=== PATIENT | female | born 1950 | race Caucasian/White ===

== ENCOUNTER → 2017-09-15 10:00 | Outpatient (CLI) | payer MEDICARE, OTHER, SELFPAY ==
[2017-09-20 11:22] LABS: HPV Reflexed? NOT INDICATED
== END ==
PROVIDERS: Family Provider Family Medicine; PCP Family Medicine; Visit Provider Obstetrics & Gynecology
DX: Z12.4 Encounter for screening for malignant neoplasm of cervix (principal)
CPT/HCPCS: 88175; G0145

== ENCOUNTER → 2017-10-22 11:40 | Outpatient (CLI) | payer MEDICARE, OTHER, SELFPAY | PROVIDERS: Family Provider Family Medicine; PCP Family Medicine; Visit Provider Family Medicine | DX: J02.9 Acute pharyngitis, unspecified (principal) | CPT/HCPCS: 87070 ==

== ENCOUNTER → 2018-01-24 09:29 | Outpatient (CLI) | payer MEDICARE, OTHER, SELFPAY ==
[2018-01-24 12:17] LABS: Absolute Lymphocyte Count 1.91 X10^3/ul (0.83-4.51); Absolute Neutrophil Count 2.7 X10^3/uL (2.0-7.7); Basophil# 0.05 X10^3/uL; Eosinophil# 0.07 X10^3/uL; Eosinophils% 1.3 % (0-5); Hematocrit 37.8 % (37-47); Hemoglobin 12.1 g/dl (12.0-15.0); Lymphocyte # 1.91 X10^3/ul (4.0); Lymphocyte % 36.6 % (19-41); Mean Corpuscular Hgb 29.7 pg (27.0-32.0); Mean Corpuscular Volume 92.6 fL (81-99); Mean Platelet Vol. 10.5 fl (6.2-12.0); Monocyte# 0.44 X10^3/uL; Monocyte% 8.4 % (0-10); Neutrophil # 2.74 X10^3/uL (2.7-7.7); Neutrophil % 52.5 % (47-70); Platelet Count 288 K/mm3 (150-450); RBC Distribution Width CV 13.1 % (11.6-14.6); RBC Distribution Width SD 44.1 fl (35.1-43.9); Red Blood Count 4.08 M/mm3 (4.2-5.4); White Blood Count 5.2 K/mm3 (4.4-11.0)
[2018-01-24 12:22] LABS: POSITIVE COUNT NO; POSITIVE DIFFERENTIAL NO; POSITIVE MORPHOLOGY NO
[2018-01-24 12:35] LABS: Vitamin D,25 Hydroxy 23.1 ng/mL (29.95-100.01)
[2018-01-24 12:44] LABS: ALB/GLOB Ratio 0.9 RATIO (0.9-2.4); AST(SGOT) 22 U/L (15-37); Alanine Aminotransfer ALT/SGPT 31 U/L (13-56); Albumin, Serum 3.8 g/dL (3.2-5.0); Alkaline Phosphatase 73 U/L (45-117); Anion Gap 11 (5-15); BUN 10 mg/dL (7-18); BUN/Creat Ratio 12.6 RATIO (10-20); Calcium,Total 8.9 mg/dL (8.5-10.1); Chloride 105 mmol/L (98-107); Cholesterol 177 mg/dL (200); EST Glomerular Filtration Rate 77 mL/min (>60); Est Glom Filt Rate - Afr Amer 93 mL/min (>60); Globulin 4.1 g/dL (2.2-4.2); Glucose 86 mg/dL (74-106); High Density Lipoprotein 66 mg/dL; Potassium 3.9 mmol/L (3.5-5.1); Protein, Total 7.9 g/dL (6.4-8.2); Sodium Level 142 mmol/L (136-145); Thyroid Stim Hormone (TSH) 0.74 uIU/mL (0.358-3.74); Triglycerides 73 mg/dL; Very Low Density Lipoprotein 15 mg/dL (5-40)
== END ==
PROVIDERS: Family Provider Family Medicine; PCP Family Medicine; Visit Provider Family Medicine
DX: K58.0 Irritable bowel syndrome with diarrhea (principal); M81.0 Age-related osteoporosis without current pathological fracture; E78.00 Pure hypercholesterolemia, unspecified
CPT/HCPCS: 36415; 80053; 80061; 82306; 84443; 85025

== ENCOUNTER 2018-02-20 06:40 | Emergency (ER) | payer MEDICARE, OTHER, SELFPAY ==
[2018-02-20 06:41] VITALS: BP 146/68; PULSE 68; RESP 16; TEMP 36.7; O2SAT 100; BMI 22.1
--- NOTE | 2018-02-20 06:50 | CT_ITS ---
STUDY: CT ABDOMEN AND PELVIS WITH CONTRAST REASON FOR EXAM: Female, 67 years old. LLQ PAIN-DX WITH DIVERTICULITIS YESTERDAY WITH NO IMAGING DONE, INCREASED ABD CRAMPING TODAY, SURG-APPY, LT OOPHRECTOMY. RADIATION DOSAGE (If Supplied By Facility): CTDIvol = ( 10.35 ) mGy, DLP = ( 474.28 ) mGycm TECHNIQUE: Transaxial images were obtained from the dome of the diaphragm to the symphysis pubis without oral contrast. 100 ml of Isovue 300 contrast was administered. Sagittal and coronal images were reconstructed. Individualized dose optimization techniques were used for this CT. COMPARISON: None. FINDINGS: The visualized lung bases are unremarkable. The visualized portions of the heart are within normal limits. Normal liver. Normal gallbladder and extrahepatic biliary system. Normal spleen. Normal pancreas. Normal bilateral adrenal glands. Normal right kidney. Normal left kidney. Normal visualized stomach. Normal small intestine. Normal colon. There is non-visualization of the appendix. There is diffuse atherosclerotic calcification of the abdominal aorta, without a demonstrated aneurysm. Normal inferior vena cava. Normal retroperitoneum. Normal urinary bladder. Normal abdominal wall. There are diffuse degenerative changes of the visualized lumbar spine. CT/Abdomen/Pelvis W IV Cont ONLY IMPRESSION: Diverticulosis. Electronically Signed: Charley Felipe MD at 8:26 EDT Tel , Service support ,
--- NOTE | 2018-02-20 06:51 | ED.VISSUMM ---
- ER Visit Summary Date of Service: 02/20/18 Chief Complaint: Left lower quadrant abdominal pain History of Present Illness: The patient is a 67 F history of irritable bowel syndrome. Prior appendectomy and her left ovary removed. Patient states for approximately 1 week she has had left lower quadrant abdominal pain. Initially was treated with Bentyl and then started on the antibiotic Omnicef. She felt this may be secondary to irritable bowel. But has not been getting any better. She saw her primary care physician Dr. Aaron Segura yesterday also started her on Flagyl. She denies nausea or vomiting. She has had no true fever but states she has had low-grade temperatures in the 99 range. She denies any dysuria, hematuria or frequency. She denies any vaginal bleeding. She denies any abdominal trauma. No back pain. Physical Examination: Well-appearing older female. Vital signs are stable and afebrile. H EENT exam unremarkable. Moist wheeze membranes. Neck nontender. No lymphadenopathy. Lungs clear to auscultation bilaterally. Heart regular rate and rhythm no murmur. Abdomen is soft. Mild left lower quadrant tenderness. No rebound. No guarding or rigidity. No signs of bowel obstruction. No distention. No hernias or masses. No pulsatile mass. Both the right upper and right lower quadrants are completely nontender. Normal bowel sounds. Moving all 4 extremities. Neurovascularly intact. Calves are nontender without edema. Back is nontender. Neurologically she is awake and alert without focal motor deficits. Test Results: [] Emergency Department Course and Treatment: Patient with left lower quadrant abdominal pain. Does not have significant discomfort on exam. Screening labs and CT of be obtained. Along with urinalysis. Patient will be turned over to the a.m. physician. Treatment Plan: [] Disposition: [] Impression: Acute left lower quadrant abdominal pain Prior history of appendectomy. This note was generated with [employer] dictation software. It may contain incorrect words, spelling, and punctuation that were not noted in review of the chart prior to signing <Erlin Perez - Last Filed: 02/20/18 06:51> - ER Visit Summary Date of Service: 02/20/18 Test Results: CBC, comprehensive metabolic profile, lipase, and urinalysis were obtained were all within normal limits. CT scan of the abdomen and pelvis with IV contrast shows diverticulosis but no acute abdominal process. Emergency Department Course and Treatment: Patient was instructed to finish her Flagyl and Omnicef as prescribed. Patient was instructed to take Bentyl as needed for pain. Patient was instructed to follow-up with her primary care physician in 5-7 days. Patient was instructed to eat a bland diet. Patient understood and was agreeable with the plan. All questions were answered. Disposition: Discharged home Impression: Left lower quadrant abdominal pain This note was generated with [employer] dictation software. It may contain incorrect words, spelling, and punctuation that were not noted in review of the chart prior to signing <Aaron River - Last Filed: 02/20/18 08:44> ED Disposition <Erlin Perez - Last Filed: 02/20/18 06:51> <Aaron River - Last Filed: 02/20/18 08:44> - Plan for ED Patient: Disposition: Home or Assisted Living Chief Complaint: Abd Pain Diagnosis: Left lower quadrant abdominal pain of unknown etiology Instructions: ED Abdominal Pain Unkn Cause Referrals: Aaron Segura MD [Primary Care Provider] -
[2018-02-20 07:01] LABS: Bacteria 0 SEEN /hpf (None Seen); Mucous, Urine 0 SEEN /hpf (<or=2+); Red Blood Cells-Urine 0 SEEN /hpf (0-5); White Blood Cells 0 SEEN /hpf (0-5)
[2018-02-20 07:05] LABS: Absolute Lymphocyte Count 2.11 X10^3/ul (0.83-4.51); Absolute Neutrophil Count 2.2 X10^3/uL (2.0-7.7); Basophil# 0.05 X10^3/uL; Eosinophil# 0.12 X10^3/uL; Eosinophils% 2.4 % (0-5); Hematocrit 39.1 % (37-47); Hemoglobin 12.6 g/dl (12.0-15.0); Lymphocyte # 2.11 X10^3/ul (4.0); Lymphocyte % 41.9 % (19-41); Mean Corp Hgb Conc 32.2 g/gl (32-36); Mean Corpuscular Hgb 29.9 pg (27.0-32.0); Mean Corpuscular Volume 92.7 fL (81-99); Mean Platelet Vol. 9.8 fl (6.2-12.0); Monocyte# 0.53 X10^3/uL; Monocyte% 10.5 % (0-10); Neutrophil # 2.22 X10^3/uL (2.7-7.7); Neutrophil % 44.2 % (47-70); Platelet Count 295 K/mm3 (150-450); RBC Distribution Width CV 12.8 % (11.6-14.6); RBC Distribution Width SD 42.1 fl (35.1-43.9); Red Blood Count 4.22 M/mm3 (4.2-5.4)
[2018-02-20 07:17] LABS: POSITIVE COUNT NO; POSITIVE DIFFERENTIAL NO; POSITIVE MORPHOLOGY NO
[2018-02-20 07:18] LABS: Color, Urine Straw (Yellow); Glucose, Dipstick Normal (Normal); Ketone-Dipstick Negative (Negative); Leukocyte Esterase-Dipstick Negative /ul (Negative); Nitrite-Dipstick Negative (Negative); Occult Blood-Urine Negative /ul (Negative); Protein-Dipstick Negative (Negative); Urine Bilirubin Dipstick Negative (Negative); Urine Clarity Clear (Clear); Urine Urobilinogen Normal (Normal); Urine pH 6.5 (5.0 - 8.0)
[2018-02-20 07:20] LABS: Squamous Epithelial Cells - UA 0-5 SEEN /hpf (5-10)
[2018-02-20 07:24] LABS: AST(SGOT) 19 U/L (15-37); Alanine Aminotransfer ALT/SGPT 28 U/L (13-56); Albumin, Serum 3.8 g/dL (3.2-5.0); Alkaline Phosphatase 76 U/L (45-117); Anion Gap 11 (5-15); BUN 8 mg/dL (7-18); Bilirubin, Direct 0.07 mg/dL (0.00-0.30); Calcium,Total 8.9 mg/dL (8.5-10.1); Chloride 107 mmol/L (98-107); Creatinine, Serum 0.89 mg/dL (0.55-1.02); EST Glomerular Filtration Rate 67 mL/min (>60); Est Glom Filt Rate - Afr Amer 82 mL/min (>60); Estimated Creatinine Clearance 53.69 ml/min; Globulin 4.3 g/dL (2.2-4.2); Glucose 96 mg/dL (74-106); Lipase 237 U/L (73-393); Potassium 3.8 mmol/L (3.5-5.1); Protein, Total 8.1 g/dL (6.4-8.2); Sodium Level 144 mmol/L (136-145)
[2018-02-20 08:51] VITALS: BP 108/84; PULSE 72; RESP 15; O2SAT 98
== END 2018-02-20 08:51 | disposition home or self-care (01) ==
PROVIDERS: Emergency Provider Emergency Medicine; Family Provider Family Medicine; PCP Family Medicine
DX: R10.32 Left lower quadrant pain (principal); K58.0 Irritable bowel syndrome with diarrhea
CPT/HCPCS: 74177; 80048; 80076; 81001; 83690; 85025; 99283; Q9967; A4216

== ENCOUNTER → 2018-03-18 13:20 | Outpatient (CLI) | payer MEDICARE, OTHER, SELFPAY | PROVIDERS: Family Provider Family Medicine; PCP Family Medicine; Visit Provider Family Medicine | DX: K57.92 Diverticulitis of intestine, part unspecified, without perforation or abscess without bleeding (principal) | CPT/HCPCS: 74176 ==

== ENCOUNTER → 2018-07-09 09:28 | Outpatient (CLI) | payer MEDICARE, OTHER, SELFPAY ==
--- NOTE | 2018-07-09 09:34 | BI_ITS ---
MAMMOGRAPHY - BILATERAL SCREENING REASON FOR EXAM: Female, 68 years old. Routine annual screening examination. PERTINENT HISTORY: Non-contributory. TECHNIQUE: Digital bilateral breast sophia (3D mammographic acquisition) in the CC and MLO projections. 2-D mediolateral oblique (MLO) and craniocaudad (CC) views of both breasts were obtained. CAD: Full Field Digital Mammography with Computer Added Detection was performed. COMPARISON: Comparison is made with prior study dated July 08, 2017 and July 07, 2016. FINDINGS: Breast Composition: The breasts are heterogeneously dense, which may obscure small masses. There are no dominant masses or suspicious calcifications. No other significant abnormalities are identified. There has been no significant change since the prior study. BI/SCREENING MAMM (CAD), BILAT IMPRESSION: Stable bilateral screening mammogram. Yearly follow-up mammogram recommended. (A) ASSESSMENT CATEGORY: BIRADS Category 1: Negative. A letter regarding these results will be sent to the patient by the facility within 30 days. Approximately 10% of breast cancers are not detected by mammography. A normal mammogram should not delay biopsy of a clinically suspicious abnormality. [id number] Electronically Signed: Mann Moses MD at 10:07 EST Tel [phone], Service support ,
== END ==
PROVIDERS: Family Provider Family Medicine; PCP Family Medicine; Referring Provider Obstetrics & Gynecology; Visit Provider Obstetrics & Gynecology
DX: Z12.31 Encounter for screening mammogram for malignant neoplasm of breast (principal)
CPT/HCPCS: 77063; 77067

== ENCOUNTER → 2018-08-03 07:52 | Outpatient (CLI) | payer MEDICARE, OTHER, SELFPAY ==
--- OUTSIDE RECORDS SUMMARY | 2018-10-05 02:04 | XMS RPT_ITS ---
:1950 Author Organization [facility] Care Team Providers Name Role Phone EARLE LEONARDO Attending Unavailable SEGURA, DEREJE SUSAN Referring Unavailable EARLE LEONARDO Attending Unavailable SEGURA, DEREJE SUSAN Referring Unavailable Segura, Dereje Attending Unavailable Segura, Dereje Primary Care Unavailable Segura, Dereje Attending Unavailable Segura, Dereje Primary Care Unavailable Segura, Dereje Referring Unavailable Segura, Dereje Attending Unavailable Segura, Dereje Referring Unavailable Segura, Dereje Primary Care Unavailable Patric Ledezma Attending Unavailable Segura, Dereje Primary Care Unavailable Patric Ledezma Referring Unavailable Segura, Dereje Primary Care Unavailable Erlin Perez Attending Unavailable Segura, Dereje Attending Unavailable Segura, Dereje Primary Care Unavailable Patric Ledezma Attending Unavailable Patric Ledezma Referring Unavailable Segura, Dereje Primary Care Unavailable PROBLEMS PROBLEMS DATE TYPE CONDITION / CODE ATTENDING STATUS SOURCE 08/03/2018 Unknown R19.7 - Diarrhea, Segura, Dereje Active [facility] unspecified / Community R19.7(ICD-10) Hospital Repository 07/15/2018 Unknown Z12.31 - Patric Ledezma Active [facility] Encounter for Community screening Hospital mammogram for Repository malignant neoplasm of breast / Z12.31(ICD-10) 10/26/2017 Unknown J02.9 - Acute Dereje Segura Active [facility] pharyngitis, Community unspecified / Hospital J02.9(ICD-10) Repository 09/15/2017 Unknown Z12.4 - Encounter Patric Ledezma Active [facility] for screening for Community malignant Hospital neoplasm of Repository cervix / Z12.4(ICD-10) PROCEDURES PROCEDURES No Procedure Records FoundRESULTS RESULTS Observed: 08/03/2018 Status: F Source: [place] CDIFF (MOLECULAR) 7:42 AM [facility] REPOSITORY Cdiff-Molecular Normal Reference Range = Negative C. Diff DNA Negative- No toxigenic C. Diff DNA Detected NAAT METHOD Testing was performed using nucleic acid amplification Performed By: #### [id number] #### [facility] [address] [place], [address] SCREENING MAMM (CAD), Observed: 07/09/2018 Status: F Source: [place] BILAT 9:35 AM [facility] REPOSITORY [facility] Imaging Services [address] [place] [address] SCREENING MAMM (CAD), BILAT MR#: [id number] Acct: [id number] Name: TRACI FRAZIER Rep #: [id number] : 1950 F 68 From: Mann Moses MD PCP: Dereje Segura MD Status: REG CLI Study: SCREENING MAMM (CAD), BILAT Date of Exam: 07/09/18 Exam# [id number] Ordering Dr: Patric Ledezma MD MAMMOGRAPHY - BILATERAL SCREENING REASON FOR EXAM: Female, 68 years old. Routine annual screening examination. PERTINENT HISTORY: Non-contributory. TECHNIQUE: Digital bilateral breast sophia (3D mammographic acquisition) in the CC and MLO projections. 2-D mediolateral oblique (MLO) and craniocaudad (CC) views of both breasts were obtained. CAD: Full Field Digital Mammography with Computer Added Detection was performed. COMPARISON: Comparison is made with prior study dated July 08, 2017 and July 07, 2016. FINDINGS: Breast Composition: The breasts are heterogeneously dense, which may obscure small masses. There are no dominant masses or suspicious calcifications. No other significant abnormalities are identified. There has been no significant change since the prior study. BI/SCREENING MAMM (CAD), BILAT IMPRESSION: Stable bilateral screening mammogram. Yearly follow-up mammogram recommended. (A) ASSESSMENT CATEGORY: BIRADS Category 1: Negative. A letter regarding these results will be sent to the patient by the facility within 30 days. Approximately 10% of breast cancers are not detected by mammography. A normal mammogram should not delay biopsy of a clinically suspicious abnormality. [id number] Electronically Signed: Mann Moses MD at 10:07 EST Tel [phone], Service support , CC: Dereje Segura MD; Patric Leedzma MD [employer]: Signed PROGRESS Observed: 05/20/2018 Status: COMPLETED Source: [place] 12:23 PM [facility] [place] REPOSITORY HNO ID: [id number] Author: Earle Leonardo Service: (none) Author Type: Physician Type: Progress Notes Filed: 05/20/2018 12:28 PM Note Text: CC: Ongoing IBS, recent diverticulitis and possible musculoskeletal strain HPI: Traci Frazier is a 68 year old female. The patient is well-known to me. She has a long history of irritable bowel syndrome which was worsened by the passing unexpectedly of her approximately one and a half years ago. When I saw her last she was getting significantly better. She will complete grief counseling sessions at the end of this year In February of this year the patient had a prolonged episode of left lower quadrant pain which did not improve with dicyclomine which it usually does. She was clinically diagnosed with diverticulitis and placed on Omnicef and Flagyl. She improved significantly but then had a significant worsening. She went to the ER where a CT scan showed diverticulosis but no evidence of diverticulitis. Currently she feels reasonably well but has a nagging mild left lower quadrant discomfort. It should be noted she is doing quite a bit of physical activity and is training for yet another [employer] race. 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 MVP - Other chronic cystitis - Ovarian cyst PAST SURGICAL HISTORY Procedure Laterality Date - APPENDECTOMY - COLONOSCOP W/ OR W/O [facility] SPEC 01/08/2006 Colonoscopy - COLONOSCOP W/ OR W/O [facility] SPEC 05/29/2011 Colonoscopy - OOPHORECTOMY, PART/TOTAL UNILAT/BILAT 2011 L tube and ovary - OVARIAN CYSTECTOMY 04/2012 - RECONSTR NOSE Rhinoplasty - REMOVAL OF TONSILS,<12 Y/O Tonsillectomy SOCIAL HX: Social History Substance Use Topics - Smoking status: Never Smoker - Smokeless tobacco: Never Used - Alcohol use Yes Comment: OCC FAMILY HISTORY Problem Relation Age of Onset - other (hyperlipidemia) Father - other (lung ca) Father smoker x 40 yrs - Alzheimer's Disease Mother 1929. dementia since 2003. - Colon Cancer Mother - other (HTN) Mother diverticulitis/ part of colon removed - other (DM) Mother - other (Bilateral BKA) Maternal Grandfather - Cancer Maternal Aunt ovarian ALLERGIES: ALLERGIES Allergen Reactions - Bactrim [Sulfametho* - Compazine [Prochlor* Anaphylaxis - Metoprolol Intolerance Fatigue, myalgia fo UE's - Penicillins GI Upset vomiting - Phenothiazines MEDICATIONS: dicyclomine (BENTYL) 20 mg tablet Take 1 tablet by mouth three times daily. Azelastine 0.15 % (205.5 mcg) spry 1 [place] as needed. CALCITRATE 200 mg (950 mg) tab Take 1,900 mg by mouth twice daily. cholecalciferol (VITAMIN D3) 1,000 unit tab tablet Take 1,000 Units by mouth once daily. multivitamin tablet Take 1 tablet by mouth once daily. LACTOBACILLUS ACIDOPHILUS (PROBIOTIC ORAL) Take by mouth once daily. simvastatin (ZOCOR) 5 mg tablet Take 1 tablet by mouth every evening. For cholesterol. FLUCONAZOLE (DIFLUCAN ORAL) Take by mouth as needed. Estradiol (VAGIFEM) 25 mcg VAGINAL vaginal tablet Use vaginally. TWICE WEEKLY ROS: All systems reviewed and negative except as above noted. PHYSICAL EXAM: VITALS: Wt 122 lb 12.8 oz (55.7kg) General Appearance: Well appearing, alert, in no acute distress, well-hydrated, well nourished.. Skin: Skin color, texture, turgor normal, no suspicious rashes or lesions. Lungs: Lungs clear to auscultation. No wheezing, rhonchi, rales. Heart: RRR without murmur, gallop, or rubs. No ectopy. Abdomen: Normal abdominal exam, Abdomen soft, non-tender. Bowel sounds normal. No masses, organomegaly. IMPRESSION: This is that this patient indeed have an episode of diverticulitis which has now long since disappeared. Her current left lower quadrant pain seems to be musculoskeletal in origin. One cannot rule out mild IBS but I doubt that this is the case PLAN: Whenever diverticulitis is suspected, my strong recommendation would be to be first evaluated in the ER Trial of dicyclomine. For 1 week-if no improvement would think that this pain is likely musculoskeletal and if that is the case would first try Tylenol and if that did not improve things a heating pad Return for reevaluation in 6 months Colonoscopy in 2019 as this patient has a strong family history of colon cancer This note was partially generated using [employer] voice recognition system, and there may be some incorrect words, spellings, and punctuation that were not noted in checking the note before saving. Earle Leonardo MD CNOV Observed: 05/20/2018 Status: COMPLETED Source: [place] 11:30 AM [facility] REPOSITORY Office Visit (CORINATW) TRACI FRAZIER ([id number]) 1950 F NFR Date Time Provider Department 05/20/18 11:30 AM EARLE LEONARDO During your visit today, we recorded the following information about you: Weight 55.7 kg Earle Leonardo MD 05/20/2018 12:28 PM Signed CC: Ongoing IBS, recent diverticulitis and possible musculoskeletal strain HPI: Traci Frazier is a 68 year old female. The patient is well-known to me. She has a long history of irritable bowel syndrome which was worsened by the passing unexpectedly of her approximately one and a half years ago. When I saw her last she was getting significantly better. She will complete grief counseling sessions at the end of this year In February of this year the patient had a prolonged episode of left lower quadrant pain which did not improve with dicyclomine which it usually does. She was clinically diagnosed with diverticulitis and placed on Omnicef and Flagyl. She improved significantly but then had a significant worsening. She went to the ER where a CT scan showed diverticulosis but no evidence of diverticulitis. Currently she feels reasonably well but has a nagging mild left lower quadrant discomfort. It should be noted she is doing quite a bit of physical activity and is training for yet another [employer]. 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 MVP - Other chronic cystitis - Ovarian cyst PAST SURGICAL HISTORY Procedure Laterality Date - APPENDECTOMY - COLONOSCOP W/ OR W/O [facility] SPEC 01/08/2006 Colonoscopy - COLONOSCOP W/ OR W/O [facility] SPEC 05/29/2011 Colonoscopy - OOPHORECTOMY, PART/TOTAL UNILAT/BILAT 2011 L tube and ovary - OVARIAN CYSTECTOMY 04/2012 - RECONSTR NOSE Rhinoplasty - REMOVAL OF TONSILS,<12 Y/O Tonsillectomy SOCIAL HX: Social History Substance Use Topics - Smoking status: Never Smoker - Smokeless tobacco: Never Used - Alcohol use Yes Comment: OCC FAMILY HISTORY Problem Relation Age of Onset - other (hyperlipidemia) Father - other (lung ca) Father smoker x 40 yrs - Alzheimer's Disease Mother 1929. dementia since 2003. - Colon Cancer Mother - other (HTN) Mother diverticulitis/ part of colon removed - other (DM) Mother - other (Bilateral BKA) Maternal Grandfather - Cancer Maternal Aunt ovarian ALLERGIES: ALLERGIES Allergen Reactions - Bactrim [Sulfametho* - Compazine [Prochlor* Anaphylaxis - Metoprolol Intolerance Fatigue, myalgia fo UE's - Penicillins GI Upset vomiting - Phenothiazines MEDICATIONS: dicyclomine (BENTYL) 20 mg tablet Take 1 tablet by mouth three times daily. Azelastine 0.15 % (205.5 mcg) spry 1 [place] as needed. CALCITRATE 200 mg (950 mg) tab Take 1,900 mg by mouth twice daily. cholecalciferol (VITAMIN D3) 1,000 unit tab tablet Take 1,000 Units by mouth once daily. multivitamin tablet Take 1 tablet by mouth once daily. LACTOBACILLUS ACIDOPHILUS (PROBIOTIC ORAL) Take by mouth once daily. simvastatin (ZOCOR) 5 mg tablet Take 1 tablet by mouth every evening. For cholesterol. FLUCONAZOLE (DIFLUCAN ORAL) Take by mouth as needed. Estradiol (VAGIFEM) 25 mcg VAGINAL vaginal tablet Use vaginally. TWICE WEEKLY ROS: All systems reviewed and negative except as above noted. PHYSICAL EXAM: VITALS: Wt 122 lb 12.8 oz (55.7kg) General Appearance: Well appearing, alert, in no acute distress, well-hydrated, well nourished.. Skin: Skin color, texture, turgor normal, no suspicious rashes or lesions. Lungs: Lungs clear to auscultation. No wheezing, rhonchi, rales. Heart: RRR without murmur, gallop, or rubs. No ectopy. Abdomen: Normal abdominal exam, Abdomen soft, non-tender. Bowel sounds normal. No masses, organomegaly. IMPRESSION: This is that this patient indeed have an episode of diverticulitis which has now long since disappeared. Her current left lower quadrant pain seems to be musculoskeletal in origin. One cannot rule out mild IBS but I doubt that this is the case PLAN: Whenever diverticulitis is suspected, my strong recommendation would be to be first evaluated in the ER Trial of dicyclomine. For 1 week-if no improvement would think that this pain is likely musculoskeletal and if that is the case would first try Tylenol and if that did not improve things a heating pad Return for reevaluation in 6 months Colonoscopy in 2019 as this patient has a strong family history of colon cancer This note was partially generated using Dragon voice recognition system, and there may be some incorrect words, spellings, and punctuation that were not noted in checking the note before saving. Earle Leonardo MD Referring Provider: DEREJE SEGURA [[id number]] Allergies As of Date: 05/20/2018 Noted Allergy Reaction BACTRIM (SULFAMETHOXAZOLE-TRIMETH*08/25/2005 COMPAZINE (PROCHLORPERAZINE EDISY*08/25/2005 10 - Anaphylaxis METOPROLOL 05/28/2008 5 - Intolerance Comments: Fatigue, myalgia fo UE's PENICILLINS 08/25/2005 8 - GI Upset Comments: vomiting PHENOTHIAZINES 08/25/2005 Date Reviewed: 05/20/2018 Reviewed by: Sobia Meza - Fully Assessed Reason for Visit: Recheck [92] Primary Visit Diagnosis:Irritable bowel syndrome, unspecified type [K58.9] Other Visit Diagnoses:Diverticulitis [K57.92] Left lower quadrant pain [R10.32] Musculoskeletal pain [M79.18] Prescriptions as of 05/20/2018 Sig: DICYCLOMINE 20 MG TABLET Take 1 tablet by mouth three * AZELASTINE 0.15 % (205.5 MCG)* 1 [place] as needed. CALCITRATE 200 MG (950 MG) TA* Take 1,900 mg by mouth twice * CHOLECALCIFEROL (VITAMIN D3) * Take 1,000 Units by mouth onc* MULTIVITAMIN TABLET Take 1 tablet by mouth once d* PROBIOTIC ORAL Take by mouth once daily. SIMVASTATIN 5 MG TABLET Take 1 tablet by mouth every * * DIFLUCAN ORAL Take by mouth as needed. * ESTRADIOL 25 MCG VAGINAL TABL* Use vaginally. TWICE WEEKLY Problem List As Of Date 05/20/2018 Noted Resolved PERS HX OF IRRADIATION [Z92.3] INVALID FOR* More... Mitral valve disorders [I05.9] INVALID FOR* Priority: B More... ABDOMINAL PAIN LLQ [R10.32] 02/01/2007 Other and unspecified hyperlipidemia [E78.5] INVALID FOR* Priority: A FAMILY HX GI MALIGNANCY [Z80.0] INVALID FOR* Ovarian cyst [N83.209] Priority: C Diverticulosis [K57.90] INVALID FOR* Priority: C Interstitial cystitis [N30.10] Priority: B Osteoporosis [M81.0] INVALID FOR* Priority: D Family history of Alzheimer's disease [Z82.0] INVALID FOR* Routine gynecological examination [Z01.419] INVALID FOR* Priority: D More... Encounter Status:Closed by EARLE LEONARDO MD on 05/20/18 ABDOMEN/PELVIS WITHOUT Observed: 03/18/2018 Status: F Source: [place] CONT 1:22 PM [facility] REPOSITORY [facility] Imaging Services [address] [place] [address] Abdomen/Pelvis without Cont MR#: [id number] Acct: [id number] Name: TRACI FRAZIER Rep #: [id number] : 1950 F 67 From: Mann Moses MD PCP: Dereje Segura MD Status: REG CLI Study: Abdomen/Pelvis without Cont Date of Exam: 03/18/18 Exam# [id number] Ordering Dr: Dereje Segura MD STUDY: CT ABDOMEN AND PELVIS WITHOUT CONTRAST REASON FOR EXAM: Female, 67 years old. History of diverticulitis. RADIATION DOSAGE (If Supplied By Facility): CTDIvol = ( 6.51 ) mGy, DLP = ( 278.16 ) mGycm TECHNIQUE: Transaxial images were obtained from the dome of the diaphragm to the symphysis pubis without oral contrast, and without intravenous contrast. Sagittal and coronal images were reconstructed. Individualized dose optimization techniques were used for this CT. COMPARISON: Comparison is made with prior study dated February 20, 2018. FINDINGS: The visualized lung bases are unremarkable. The visualized portions of the heart are within normal limits. There is an 8.3 mm well-defined hypodensity in the anterior midportion of the right lobe of the liver suggestive of a small cyst. This is unchanged. Normal gallbladder and extrahepatic biliary system. Normal spleen. Normal pancreas. Normal bilateral adrenal glands. Normal right kidney. Normal left kidney. There is a small hiatal hernia. Normal small intestine. There are scattered colonic diverticula consistent with diverticulosis. The patient is status post appendectomy and left nephrectomy. There is scattered atherosclerotic calcification of the abdominal aorta, without a demonstrated aneurysm. Normal inferior vena cava. Normal retroperitoneum. Normal urinary bladder. Normal abdominal wall. Minimal anterior listhesis of L4 on L5 without spondylolysis. Disc space narrowing. CT/Abdomen/Pelvis without Cont IMPRESSION: Scattered sigmoid diverticula. Small hepatic cyst. Electronically Signed: Mann Moses MD at 15:10 EDT Tel [phone], Service support , CC: Dereje Segura MD Physicist [employer]: Signed EMERGENCY DEPARTMENT Observed: 02/20/2018 Status: F Source: [place] SUMMARY 10:34 PM [facility] REPOSITORY [facility] Medical Records Department [address] [place] [address] Emergency Department Summary 02/20/18 0651 MR#: [id number] Acct: [id number] Name: TRACI FRAZIER Rep #: [id number] : 1950 67 From: Erlin Perez MD PCP: Dereje Segura MD Status: DEP ER - ER Visit Summary Date of Service: 02/20/18 Chief Complaint: Left lower quadrant abdominal pain History of Present Illness: The patient is a 67 F history of irritable bowel syndrome. Prior appendectomy and her left ovary removed. Patient states for approximately 1 week she has had left lower quadrant abdominal pain. Initially was treated with Bentyl and then started on the antibiotic Omnicef. She felt this may be secondary to irritable bowel. But has not been getting any better. She saw her primary care physician Dr. Dereje Segura yesterday also started her on Flagyl. She denies nausea or vomiting. She has had no true fever but states she has had low-grade temperatures in the 99 range. She denies any dysuria, hematuria or frequency. She denies any vaginal bleeding. She denies any abdominal trauma. No back pain. Physical Examination: Well-appearing older female. Vital signs are stable and afebrile. H EENT exam unremarkable. Moist wheeze membranes. Neck nontender. No lymphadenopathy. Lungs clear to auscultation bilaterally. Heart regular rate and rhythm no murmur. Abdomen is soft. Mild left lower quadrant tenderness. No rebound. No guarding or rigidity. No signs of bowel obstruction. No distention. No hernias or masses. No pulsatile mass. Both the right upper and right lower quadrants are completely nontender. Normal bowel sounds. Moving all 4 extremities. Neurovascularly intact. Calves are nontender without edema. Back is nontender. Neurologically she is awake and alert without focal motor deficits. Test Results: [] Emergency Department Course and Treatment: Patient with left lower quadrant abdominal pain. Does not have significant discomfort on exam. Screening labs and CT of be obtained. Along with urinalysis. Patient will be turned over to the a.m. physician. Treatment Plan: [] Disposition: [] Impression: Acute left lower quadrant abdominal pain Prior history of appendectomy. This note was generated with [employer] software. It may contain incorrect words, spelling, and punctuation that were not noted in review of the chart prior to signing <Erlin Perez - Last Filed: 02/20/18 06:51> - ER Visit Summary Date of Service: 02/20/18 Test Results: CBC, comprehensive metabolic profile, lipase, and urinalysis were obtained were all within normal limits. CT scan of the abdomen and pelvis with IV contrast shows diverticulosis but no acute abdominal process. Emergency Department Course and Treatment: Patient was instructed to finish her Flagyl and Omnicef as prescribed. Patient was instructed to take Bentyl as needed for pain. Patient was instructed to follow-up with her primary care physician in 5-7 days. Patient was instructed to eat a bland diet. Patient understood and was agreeable with the plan. All questions were answered. Disposition: Discharged home Impression: Left lower quadrant abdominal pain This note was generated with [employer] software. It may contain incorrect words, spelling, and punctuation that were not noted in review of the chart prior to signing <Dereje River - Last Filed: 02/20/18 08:44> ED Disposition <Erlin Perez - Last Filed: 02/20/18 06:51> <Dereje River - Last Filed: 02/20/18 08:44> - Plan for ED Patient: Disposition: Home or Assisted Living Chief Complaint: Abd Pain Diagnosis: Left lower quadrant abdominal pain of unknown etiology Instructions: ED Abdominal Pain Unkn Cause Referrals: Dereje Segura MD [Primary Care Provider] - What to do if you have Problems For any increased pain, shortness of breath, bleeding, nausea or vomiting, chest pain, or any unexpected problems, contact your Primary Care Provider. Call [facility] ([phone]) or report to the closest Emergency Room. Call 911 if necessary. 02/20/182233 <Electronically signed by Erlin Perez MD> Date Erlin Perez MD 02/20/1844<Electronically signed by Dereje River DO> Cosigner Signature (If Indicated): Date Dereje River DO CC: Dereje Segura MD CBC W/DIFF, AUTOMATED Collected: 02/20/2018 Status: F Source: [place] 7:00 AM [facility] REPOSITORY TYPE CODE TESTS RESULT OUT OF RANGE REFERENCE UNITS LAB L100.1000 4.4-11.0 K/mm3 Normal WBC 5.0 LAB L100.1200 4.2-5.4 M/mm3 Normal RBC 4.22 LAB L100.1300 12.0-15.0 g/dl Normal HGB 12.6 LAB L100.1400 37-47 % Normal HCT 39.1 LAB L100.1500 81-99 fL Normal MCV 92.7 LAB L100.1600 27.0-32.0 pg Normal MCH 29.9 LAB L100.1700 32-36 g/gl Normal MCHC 32.2 LAB L100.1810 11.6-14.6 % Normal RDW CV 12.8 LAB L100.1820 35.1-43.9 fl Normal RDW SD 42.1 LAB L100.1900 150-450 K/mm3 Normal PLT 295 LAB L100.2000 6.2-12.0 fl Normal MPV 9.8 LAB L100.2100 47-70 % Low NEUT% 44.2 LAB L100.2200 19-41 % High LY% 41.9 LAB L100.2300 0-10 % High MONO% 10.5 LAB L100.2400 0-5 % Normal EO% 2.4 LAB L100.2500 0-1 % Normal BASO% 1.0 LAB L100.2550 0.0-0.9 % Normal IM GRAN % 0.000 Result Comment: IG% - Immature Granulocytes (promyelocytes, myelocytes and metamyelocytes) > 1% indicates that a LEFT SHIFT is Present. LAB L100.2620 2.0-7.7 X10 3/uL Normal Absolute Neut 2.2 LAB L100.2720 0.83-4.51 X10 3/ul Normal Absolute Lymph 2.11 Performed By: #### L100.0100 #### [facility] [address] [place], [place], [address] BASIC METABOLIC Collected: 02/20/2018 Status: F Source: [place] PROFILE (BMP) 7:00 AM [facility] REPOSITORY TYPE CODE TESTS RESULT OUT OF RANGE REFERENCE UNITS LAB L501.0100 74-106 mg/dL Normal GLU 96 Result Comment: Please note revised GLUCOSE reference range effective 2017. LAB L501.1000 7-18 mg/dL Normal BUN 8 LAB L501.1100 0.55-1.02 mg/dL Normal CREAT,SERUM 0.89 Result Comment: The validity of the calculated GFR AND GFRAA in patients over 70 years has not been determined. Clinical correlation is essential. LAB L501.1110 >60 mL/min Normal EST GFR 67 Result Comment: Non- GFR Calc LAB L501.1115 >60 mL/min Normal EST GFR - AA 82 Result Comment: GFR Calc LAB L501.1255 ml/min Normal Estimated CRCL 53.69 LAB L501.1300 10-20 RATIO Low BUN/CRE 9.0 LAB L501.2200 8.5-10 mg/dL Normal .1 CA 8.9 LAB L501.5300 136-14 mmol/L Normal 5 NA 144 LAB L501.5600 3.5-5. mmol/L Normal 1 K 3.8 LAB L501.5900 98-107 mmol/L Normal CL 107 LAB L501.6100 21.0-3 mmol/L Normal 2.0 CO2 26.0 LAB L501.6200 5-15 Normal GAP 11 Performed By: #### L500.2500, L500.3400, L501.2450 #### [facility] [address] [place], [address] LIVER PROFILE Collected: 02/20/2018 Status: F Source: [place] 7:00 AM [facility] REPOSITORY TYPE CODE TESTS RESULT OUT OF RANGE REFERENCE UNITS LAB L501.1500 6.4-8.2 g/dL Normal T PROT 8.1 LAB L501.1800 3.2-5.0 g/dL Normal ALB 3.8 LAB L501.1950 2.2-4.2 g/dL High GLOB 4.3 LAB L501.4100 15-37 U/L Normal AST 19 LAB L501.4305 45-117 U/L Normal ALK P 76 LAB L501.4405 13-56 U/L Normal ALT 28 LAB L501.4600 0.20-1.00 mg/dL Normal T BILI 0.30 LAB L501.4700 0.00-0.30 mg/dL Normal D BILI 0.07 Performed By: #### L500.2500, L500.3400, L501.2450 #### [facility] [address] [place], [place], [address] LIPASE Collected: 02/20/2018 Status: F Source: [place] 7:00 AM [facility] REPOSITORY TYPE CODE TESTS RESULT OUT OF RANGE REFERENCE UNITS LAB L501.2450 73-393 U/L Normal LIPASE 237 Performed By: #### L500.2500, L500.3400, L501.2450 #### [facility] [address] [place], [address] URINALYSIS, COMPLETE Collected: 02/20/2018 Status: F Source: [place] 6:54 AM [facility] REPOSITORY Order Comment: Order Date: 02/20/18 Has pt arrived? Y How was Urine Obtained? CLEAN CATCH TYPE CODE TESTS RESULT OUT OF RANGE REFERENCE UNITS LAB L400.3000 Yellow COLOR Normal Straw LAB L400.3050 Clear Normal CLARITY Clear LAB L400.3200 Normal mg/dl Normal GLUCOSE, UR Normal LAB L400.3300 Negative mg/dL Normal BILIRUBIN URINE Negative LAB L400.3400 Negative mg/dl Normal KETONE UR Negative LAB L400.3465 1.002-1.030 Normal SP.GR. DIPSTX 1.010 LAB L400.3550 5.0 - 8.0 pH UR Normal 6.5 LAB L400.3600 Negative mg/dl PROT Normal DIPSTX Negative LAB L400.3700 Normal mg/dl Normal UROBILI Normal LAB L400.3750 Negative Normal NITRITE UR Negative LAB L400.3780 Negative /ul Normal OCCULT BLOOD-UR Negative LAB L400.3800 Negative /ul LEUK Normal ESTERASE Negative LAB L400.4050 0-5 /hpf WBC 0 Normal SEEN LAB L400.4100 0-5 /hpf 0 Normal RBC-UA SEEN LAB L400.4150 5-10 /hpf SQUAM Normal EPI 0-5 SEEN LAB L400.4300 None Seen /hpf 0 Normal BACTERIA SEEN LAB L400.4350 <or=2+ /hpf 0 Normal MUCUS, URINE SEEN Performed By: #### L400.0001 #### [facility] [address] [facility] [place], [address] ABDOMEN/PELVIS W IV CONT Observed: 02/20/2018 Status: F Source: [facility] 6:51 AM [facility] REPOSITORY [facility] Imaging Services [address] [place] [address] Abdomen/Pelvis W IV Cont ONLY MR#: [id number] Acct: [id number] Name: TRACI FRAZIER Rep #: [id number] : 1950 F 67 From: Charley Felipe PCP: Colton HAIDER,Dereje Status: REG ER Study: Abdomen/Pelvis W IV Cont ONLY Date of Exam: 02/20/18 Exam# [id number] Ordering Dr: Erlin Perez MD STUDY: CT ABDOMEN AND PELVIS WITH CONTRAST REASON FOR EXAM: Female, 67 years old. LLQ PAIN-DX WITH DIVERTICULITIS YESTERDAY WITH NO IMAGING DONE, INCREASED ABD CRAMPING TODAY, SURG-APPY, LT OOPHRECTOMY. RADIATION DOSAGE (If Supplied By Facility): CTDIvol = ( 10.35 ) mGy, DLP = ( 474.28 ) mGycm TECHNIQUE: Transaxial images were obtained from the dome of the diaphragm to the symphysis pubis without oral contrast. 100 ml of Isovue 300 contrast was administered. Sagittal and coronal images were reconstructed. Individualized dose optimization techniques were used for this CT. COMPARISON: None. FINDINGS: The visualized lung bases are unremarkable. The visualized portions of the heart are within normal limits. Normal liver. Normal gallbladder and extrahepatic biliary system. Normal spleen. Normal pancreas. Normal bilateral adrenal glands. Normal right kidney. Normal left kidney. Normal visualized stomach. Normal small intestine. Normal colon. There is non-visualization of the appendix. There is diffuse atherosclerotic calcification of the abdominal aorta, without a demonstrated aneurysm. Normal inferior vena cava. Normal retroperitoneum. Normal urinary bladder. Normal abdominal wall. There are diffuse degenerative changes of the visualized lumbar spine. CT/Abdomen/Pelvis W IV Cont ONLY IMPRESSION: Diverticulosis. Electronically Signed: Charley Felipe MD at 8:26 EDT Tel , Service support , CC: Dereje Segura MD; Erlin Perez MD Physicist [employer]: Signed CBC W/DIFF, AUTOMATED Collected: 01/24/2018 Status: F Source: [place] 9:32 AM [facility] REPOSITORY TYPE CODE TESTS RESULT OUT OF RANGE REFERENCE UNITS LAB L100.1000 4.4-11.0 K/mm3 Normal WBC 5.2 LAB L100.1200 4.2-5.4 M/mm3 Low RBC 4.08 LAB L100.1300 12.0-15.0 g/dl Normal HGB 12.1 LAB L100.1400 37-47 % Normal HCT 37.8 LAB L100.1500 81-99 fL Normal MCV 92.6 LAB L100.1600 27.0-32.0 pg Normal MCH 29.7 LAB L100.1700 32-36 g/gl Normal MCHC 32.0 LAB L100.1810 11.6-14.6 % Normal RDW CV 13.1 LAB L100.1820 35.1-43.9 fl High RDW SD 44.1 LAB L100.1900 150-450 K/mm3 Normal PLT 288 LAB L100.2000 6.2-12.0 fl Normal MPV 10.5 LAB L100.2100 47-70 % Normal NEUT% 52.5 LAB L100.2200 19-41 % Normal LY% 36.6 LAB L100.2300 0-10 % Normal MONO% 8.4 LAB L100.2400 0-5 % Normal EO% 1.3 LAB L100.2500 0-1 % Normal BASO% 1.0 LAB L100.2550 0.0-0.9 % Normal IM GRAN % 0.200 Result Comment: IG% - Immature Granulocytes (promyelocytes, myelocytes and metamyelocytes) > 1% indicates that a LEFT SHIFT is Present. LAB L100.2620 2.0-7.7 X10 3/uL Normal Absolute Neut 2.7 LAB L100.2720 0.83-4.51 X10 3/ul Normal Absolute Lymph 1.91 Performed By: #### L100.0100 #### [facility] [address] [facility]. [place], [place], [address] VITAMIN D,25 HYDROXY Collected: 01/24/2018 Status: F Source: [place] 9:32 AM [facility] REPOSITORY TYPE CODE TESTS RESULT OUT OF REFERENCE UNITS RANGE LAB L506.1000 29.95-100.01 ng/mL Low Vitamin D 23.1 25-OH Result Comment: Vitamin D 25(OH) Status Range Deficiency <20 ng/mL (50nmol/L) Insuffciency 20 - 30 ng/mL (50 - 75 nmol/L) Sufficiency 30 - 100 ng/mL (75 - 250 nmol/L) Toxicity >100 ng/mL (>250 nmol/L) Performed By: #### L506.1000 #### [facility] [address] [facility] [place], [address] COMPREHENSIVE METABOLIC Collected: 01/24/2018 Status: F Source: [facility] 9:32 AM [facility] REPOSITORY TYPE CODE TESTS RESULT OUT OF RANGE REFERENCE UNITS LAB L501.0100 74-106 mg/dL Normal GLU 86 Result Comment: Please note revised GLUCOSE reference range effective 2017. LAB L501.1000 7-18 mg/dL Normal BUN 10 LAB L501.1100 0.55-1.02 mg/dL Normal CREAT,SERUM 0.80 Result Comment: The validity of the calculated GFR AND GFRAA in patients over 70 years has not been determined. Clinical correlation is essential. LAB L501.1110 >60 mL/min Normal EST GFR 77 Result Comment: Non- GFR Calc LAB L501.1115 >60 mL/min Normal EST GFR - AA 93 Result Comment: GFR Calc LAB L501.1300 10-20 RATIO Normal BUN/CRE 12.6 LAB L501.1500 6.4-8.2 g/dL T Normal PROT 7.9 LAB L501.1800 3.2-5.0 g/dL Normal ALB 3.8 LAB L501.1950 2.2-4.2 g/dL Normal GLOB 4.1 LAB L501.2000 0.9-2.4 RATIO Normal A/G 0.9 LAB L501.2200 8.5-10.1 mg/dL CA Normal 8.9 LAB L501.4100 15-37 U/L Normal AST 22 LAB L501.4305 45-117 U/L Normal ALK P 73 LAB L501.4405 13-56 U/L Normal ALT 31 LAB L501.4600 0.20-1.00 mg/dL T Normal BILI 0.40 LAB L501.5300 136-145 mmol/L NA Normal 142 LAB L501.5600 3.5-5.1 mmol/L K Normal 3.9 LAB L501.5900 98-107 mmol/L CL Normal 105 LAB L501.6100 21.0-32.0 mmol/L Normal CO2 26.0 LAB L501.6200 5-15 Normal GAP 11 Performed By: #### L500.4050, L500.4100, L501.9520 #### [facility] [address] [place], [address] LIPID PROFILE Collected: 01/24/2018 Status: F Source: [place] 9:32 AM [facility] REPOSITORY TYPE CODE TESTS RESULT OUT OF RANGE REFERENCE UNITS LAB L501.4900 200 mg/dL Normal CHOL 177 Result Comment: <200 mg/dL Desirable 200-240 mg/dL Borderline >240 mg/dL High Risk LAB L501.5000 mg/dL Normal TRIG 73 Result Comment: The drugs N-Acetylcysteine and Metamizole may falsely depress this assay. Serum Triglycerides Reference Interval Normal <150 mg/dL Borderline high 150 - 199 mg/dL High 200 - 499 mg/dL Very High > or = 500 mg/dL LAB L501.6400 mg/dL Normal HDL 66 Result Comment: The drugs N-Acetylcysteine and Metamizole may falsely depress this assay. Reference Range HDL <40 mg/dL Low HDL Cholesterol HDL >or= 60 mg/dL High HDL Cholesterol LAB L501.6500 0-130 mg/dL Normal LDL 96 LAB L501.6600 5-40 mg/dL Normal VLDL 15 Performed By: #### L500.4050, L500.4100, L501.9520 #### [facility] [address] [facility]. [place], [place], [address] THYROID STIM HORMONE Collected: 01/24/2018 Status: F Source: [place] ([facility]) 9:32 AM [facility] REPOSITORY TYPE CODE TESTS RESULT OUT OF RANGE REFERENCE UNITS LAB L501.9520 0.358-3.74 uIU/mL Normal TSH 0.74 Performed By: #### L500.4050, L500.4100, L501.9520 #### [facility] [address] [facility] [place], [address] PROGRESS Observed: 12/24/2017 Status: COMPLETED Source: [place] 11:37 AM [facility] REPOSITORY O ID: [id number] Author: Earle Leonardo Service: (none) Author Type: Physician Type: Progress Notes Filed: 12/24/2017 11:39 AM Note Text: CC: Mrs. Frazier returns today for follow up of her IBS HPI: Traci Frazier is a 67 year old female. I saw the patient last in March 2017. At that time her symptoms were worsening due to the unexpected passing of her . She has just completed a year's worth of grief counseling and feels much better. She is now only taking dicyclomine on a very sporadic basis and in fact has not taken it in over a month and is doing reasonably well. She has taken up vigorous exercising and recently completed a 5K. At the end of that raise she noted some left lower quadrant tenderness but overall was not that bad. 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 MVP - Other chronic cystitis - Ovarian cyst PAST SURGICAL HISTORY Procedure Laterality Date - APPENDECTOMY - COLONOSCOP W/ OR W/O [facility] SPEC 01/08/2006 Colonoscopy - COLONOSCOP W/ OR W/O [facility] SPEC 05/29/2011 Colonoscopy - OOPHORECTOMY, PART/TOTAL UNILAT/BILAT 2011 L tube and ovary - OVARIAN CYSTECTOMY 04/2012 - RECONSTR NOSE Rhinoplasty - REMOVAL OF TONSILS,<12 Y/O Tonsillectomy SOCIAL HX: Social History Substance Use Topics - Smoking status: Never Smoker - Smokeless tobacco: Never Used - Alcohol use Yes Comment: OCC FAMILY HISTORY Problem Relation Age of Onset - hyperlipidemia [OTHER] Father - lung ca [OTHER] Father smoker x 40 yrs - Alzheimer's Disease Mother 1929. dementia since 2003. - Colon Cancer Mother - HTN [OTHER] Mother diverticulitis/ part of colon removed - DM [OTHER] Mother - Bilateral BKA [OTHER] Maternal Grandfather - Cancer Maternal Aunt ovarian ALLERGIES: ALLERGIES Allergen Reactions - Bactrim [Sulfametho* - Compazine [Prochlor* Anaphylaxis - Metoprolol Intolerance Fatigue, myalgia fo UE's - Penicillins GI Upset vomiting - Phenothiazines MEDICATIONS: dicyclomine (BENTYL) 20 mg tablet Take 1 tablet by mouth three times daily. Azelastine 0.15 % (205.5 mcg) spry 1 [place] as needed. CALCITRATE 200 mg (950 mg) tab Take 1,900 mg by mouth twice daily. cholecalciferol (VITAMIN D3) 1,000 unit tab tablet Take 1,000 Units by mouth once daily. multivitamin tablet Take 1 tablet by mouth once daily. LACTOBACILLUS ACIDOPHILUS (PROBIOTIC ORAL) Take by mouth once daily. simvastatin (ZOCOR) 5 mg tablet Take 1 tablet by mouth every evening. For cholesterol. FLUCONAZOLE (DIFLUCAN ORAL) Take by mouth as needed. Estradiol (VAGIFEM) 25 mcg VAGINAL vaginal tablet Use vaginally. TWICE WEEKLY ROS: All systems reviewed and negative unless otherwise noted above. PHYSICAL EXAM: VITALS: BP 117/66 Pulse 69 Wt 123 lb (55.8kg) General Appearance: Well appearing, alert, in no acute distress, well-hydrated, well nourished.. Skin: Skin color, texture, turgor normal, no suspicious rashes or lesions. Lungs: Lungs clear to auscultation. No wheezing, rhonchi, rales. Heart: RRR without murmur, gallop, or rubs. No ectopy. Abdomen: Normal abdominal exam, Abdomen soft, non-tender. Bowel sounds normal. No masses, organomegaly. IMPRESSION: IBS PLAN: Continue current treatment; return in May This note was partially generated using bead Button voice recognition system, and there may be some incorrect words, spellings, and punctuation that were not noted in checking the note before saving. Earle Leonardo MD CNOV Observed: 12/24/2017 Status: COMPLETED Source: [place] 11:00 AM [facility] REPOSITORY Office Visit (GASTTW) TRACI FRAZIER ([id number]) 1950 F NFR Date Time Provider Department 12/24/17 11:00 AM EARLE LEONARDOW During your visit today, we recorded the following information about you: Pulse Blood pressure Weight 69/minute 117/66 55.8 kg Earle Leonardo MD 12/24/2017 11:39 AM Signed CC: Mrs. Frazier returns today for follow up of her IBS HPI: Traci Frazier is a 67 year old female. I saw the patient last in March 2017. At that time her symptoms were worsening due to the unexpected passing of her . She has just completed a year's worth of grief counseling and feels much better. She is now only taking dicyclomine on a very sporadic basis and in fact has not taken it in over a month and is doing reasonably well. She has taken up vigorous exercising and recently completed a 5K. At the end of that raise she noted some left lower quadrant tenderness but overall was not that bad. 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 MVP - Other chronic cystitis - Ovarian cyst PAST SURGICAL HISTORY Procedure Laterality Date - APPENDECTOMY - COLONOSCOP W/ OR W/O [facility] SPEC 01/08/2006 Colonoscopy - COLONOSCOP W/ OR W/O [facility] SPEC 05/29/2011 Colonoscopy - OOPHORECTOMY, PART/TOTAL UNILAT/BILAT 2011 L tube and ovary - OVARIAN CYSTECTOMY 04/2012 - RECONSTR NOSE Rhinoplasty - REMOVAL OF TONSILS,<12 Y/O Tonsillectomy SOCIAL HX: Social History Substance Use Topics - Smoking status: Never Smoker - Smokeless tobacco: Never Used - Alcohol use Yes Comment: OCC FAMILY HISTORY Problem Relation Age of Onset - hyperlipidemia [OTHER] Father - lung ca [OTHER] Father smoker x 40 yrs - Alzheimer's Disease Mother 1929. dementia since 2003. - Colon Cancer Mother - HTN [OTHER] Mother diverticulitis/ part of colon removed - DM [OTHER] Mother - Bilateral BKA [OTHER] Maternal Grandfather - Cancer Maternal Aunt ovarian ALLERGIES: ALLERGIES Allergen Reactions - Bactrim [Sulfametho* - Compazine [Prochlor* Anaphylaxis - Metoprolol Intolerance Fatigue, myalgia fo UE's - Penicillins GI Upset vomiting - Phenothiazines MEDICATIONS: dicyclomine (BENTYL) 20 mg tablet Take 1 tablet by mouth three times daily. Azelastine 0.15 % (205.5 mcg) spry 1 [place] as needed. CALCITRATE 200 mg (950 mg) tab Take 1,900 mg by mouth twice daily. cholecalciferol (VITAMIN D3) 1,000 unit tab tablet Take 1,000 Units by mouth once daily. multivitamin tablet Take 1 tablet by mouth once daily. LACTOBACILLUS ACIDOPHILUS (PROBIOTIC ORAL) Take by mouth once daily. simvastatin (ZOCOR) 5 mg tablet Take 1 tablet by mouth every evening. For cholesterol. FLUCONAZOLE (DIFLUCAN ORAL) Take by mouth as needed. Estradiol (VAGIFEM) 25 mcg VAGINAL vaginal tablet Use vaginally. TWICE WEEKLY ROS: All systems reviewed and negative unless otherwise noted above. PHYSICAL EXAM: VITALS: BP 117/66 Pulse 69 Wt 123 lb (55.8kg) General Appearance: Well appearing, alert, in no acute distress, well-hydrated, well nourished.. Skin: Skin color, texture, turgor normal, no suspicious rashes or lesions. Lungs: Lungs clear to auscultation. No wheezing, rhonchi, rales. Heart: RRR without murmur, gallop, or rubs. No ectopy. Abdomen: Normal abdominal exam, Abdomen soft, non-tender. Bowel sounds normal. No masses, organomegaly. IMPRESSION: IBS PLAN: Continue current treatment; return in May This note was partially generated using bead Button voice recognition system, and there may be some incorrect words, spellings, and punctuation that were not noted in checking the note before saving. Earle Leonardo MD Referring Provider: DEREJE SEGURA [[id number]] Allergies As of Date: 12/24/2017 Noted Allergy Reaction BACTRIM (SULFAMETHOXAZOLE-TRIMETH*08/25/2005 COMPAZINE (PROCHLORPERAZINE EDISY*08/25/2005 10 - Anaphylaxis METOPROLOL 05/28/2008 5 - Intolerance Comments: Fatigue, myalgia fo UE's PENICILLINS 08/25/2005 8 - GI Upset Comments: vomiting PHENOTHIAZINES 08/25/2005 Date Reviewed: 12/24/2017 Reviewed by: Brenda Phoenix LPN - Fully Assessed Reason for Visit: Recheck [92] Primary Visit Diagnosis:Irritable bowel syndrome, unspecified type [K58.9] Order(s):dicyclomine (BENTYL) 20 mg tabletTake 1 tablet by mouth three times daily.Disp: 90 tabletRfl: 3 Prescriptions as of 12/24/2017 Sig: DICYCLOMINE 20 MG TABLET Take 1 tablet by mouth three * AZELASTINE 0.15 % (205.5 MCG)* 1 [place] as needed. CALCITRATE 200 MG (950 MG) TA* Take 1,900 mg by mouth twice * CHOLECALCIFEROL (VITAMIN D3) * Take 1,000 Units by mouth onc* MULTIVITAMIN TABLET Take 1 tablet by mouth once d* PROBIOTIC ORAL Take by mouth once daily. SIMVASTATIN 5 MG TABLET Take 1 tablet by mouth every * * DIFLUCAN ORAL Take by mouth as needed. * ESTRADIOL 25 MCG VAGINAL TABL* Use vaginally. TWICE WEEKLY Problem List As Of Date 12/24/2017 Noted Resolved PERS HX OF IRRADIATION [Z92.3] INVALID FOR* More... Mitral valve disorders [I05.9] INVALID FOR* Priority: B More... ABDOMINAL PAIN LLQ [R10.32] 02/01/2007 Other and unspecified hyperlipidemia [E78.5] INVALID FOR* Priority: A FAMILY HX GI MALIGNANCY [Z80.0] INVALID FOR* Ovarian cyst [N83.209] Priority: C Diverticulosis [K57.90] INVALID FOR* Priority: C Interstitial cystitis [N30.10] Priority: B Osteoporosis [M81.0] INVALID FOR* Priority: D Family history of Alzheimer's disease [Z82.0] INVALID FOR* Routine gynecological examination [Z01.419] INVALID FOR* Priority: D More... Prescriptions ordered this encounter Disp Refills Start End DICYCLOMINE 20 MG TABLET 90 t* 3 12/24/2017 Route: ORAL Sig: Take 1 tablet by mouth three times daily. Medications Discontinued During This Encounter dicyclomine (BENTYL) 20 mg tablet 90 t* 3 03/19/2017 12/24/2017 Class: Print RX Route: ORAL Sig: Take 1 tablet by mouth three times daily. Disc: Reason for discontinue is not on file. Encounter Status:Closed by EARLE LEONARDO MD on 12/24/17 PROGRESS Observed: 12/12/2017 Status: COMPLETED Source: [place] 8:48 AM [facility] [place] REPOSITORY HNO ID: [id number] Author: Luis Willis) [place] Service: (none) Author Type: Physician Shingle Sawyer Type: Progress Notes Filed: 12/12/2017 9:05 AM Note Text: Subjective HPI Pt presents with right ear pain x 2 days. She was at the [employer] 3 days ago and was sitting behind some kids who were screaming very loudly. Her ears did not hurt then but when she got home later the right ear started hurting. No difficulty hearing. No fever or chills. No nasal congestion or cough. No discharge from the ear. She is going on vacation to [place] and would be doing some swimming and wanted to make sure that would be ok so she came in for evaluation. Review of Systems HENT: Positive for ear pain. All other systems reviewed and are negative. Objective Physical Exam Constitutional: She is oriented to person, place, and time and well-developed, well-nourished, and in no distress. HENT: Head: Normocephalic and atraumatic. Right Ear: Tympanic membrane, external ear and ear canal normal. Left Ear: Tympanic membrane, external ear and ear canal normal. Nose: Nose normal. Mouth/Throat: Uvula is midline, oropharynx is clear and moist and mucous membranes are normal. Eyes: Conjunctivae are normal. Neck: Normal range of motion. Cardiovascular: Normal rate, regular rhythm and normal heart sounds. Pulmonary/Chest: Effort normal and breath sounds normal. Neurological: She is alert and oriented to person, place, and time. Skin: Skin is warm. No rash noted. Psychiatric: Affect and judgment normal. Nursing note and vitals reviewed. ASSESSMENT/PLAN: 1. Right ear pain - ICD9: 388.70, ICD10: H92.01 Pt likely has eustachian tube dysfunction. Discussed using antihistamines and anti-inflammatories. She states the pain is actually better today than yesterday. There is no perforation of the ear drug visualized. No otitis externa. Discussed with patient concerning symptoms to go to the emergency department or follow up here. Pt agreeable with this plan. AHSAN GarciaOV Observed: 12/12/2017 Status: COMPLETED Source: [place] 8:45 AM [facility] REPOSITORY Office Visit (WSTR) TRACI FRAZIER ([id number]) 1950 F NFR Date Time Provider Department 12/12/17 8:45 AM LUIS ARTHUR (PA) [facility] During your visit today, we recorded the following information about you: Temperature Pulse Blood pressure Weight 98.2 degrees 70/minute 120/78 55.8 kg Luis Arthur PA-C 12/12/2017 9:05 AM Signed Subjective HPI Pt presents with right ear pain x 2 days. She was at the [employer] 3 days ago and was sitting behind some kids who were screaming very loudly. Her ears did not hurt then but when she got home later the right ear started hurting. No difficulty hearing. No fever or chills. No nasal congestion or cough. No discharge from the ear. She is going on vacation to [place] and would be doing some swimming and wanted to make sure that would be ok so she came in for evaluation. Review of Systems HENT: Positive for ear pain. All other systems reviewed and are negative. Objective Physical Exam Constitutional: She is oriented to person, place, and time and well-developed, well-nourished, and in no distress. HENT: Head: Normocephalic and atraumatic. Right Ear: Tympanic membrane, external ear and ear canal normal. Left Ear: Tympanic membrane, external ear and ear canal normal. Nose: Nose normal. Mouth/Throat: Uvula is midline, oropharynx is clear and moist and mucous membranes are normal. Eyes: Conjunctivae are normal. Neck: Normal range of motion. Cardiovascular: Normal rate, regular rhythm and normal heart sounds. Pulmonary/Chest: Effort normal and breath sounds normal. Neurological: She is alert and oriented to person, place, and time. Skin: Skin is warm. No rash noted. Psychiatric: Affect and judgment normal. Nursing note and vitals reviewed. ASSESSMENT/PLAN: 1. Right ear pain - ICD9: 388.70, ICD10: H92.01 Pt likely has eustachian tube dysfunction. Discussed using antihistamines and anti-inflammatories. She states the pain is actually better today than yesterday. There is no perforation of the ear drug visualized. No otitis externa. Discussed with patient concerning symptoms to go to the emergency department or follow up here. Pt agreeable with this plan. Luis Arthur PA-C Referring Provider: SELF [[id number]] Allergies As of Date: 12/12/2017 Noted Allergy Reaction BACTRIM (SULFAMETHOXAZOLE-TRIMETH*08/25/2005 COMPAZINE (PROCHLORPERAZINE EDISY*08/25/2005 10 - Anaphylaxis METOPROLOL 05/28/2008 5 - Intolerance Comments: Fatigue, myalgia fo UE's PENICILLINS 08/25/2005 8 - GI Upset Comments: vomiting PHENOTHIAZINES 08/25/2005 Date Reviewed: 12/12/2017 Reviewed by: Lexi Rodriguez Ma - Fully Assessed Reason for Visit: Ear Pain [817] Cmt: RT ear pain x 2 days Primary Visit Diagnosis:Right ear pain [H92.01] Prescriptions as of 12/12/2017 Sig: AZELASTINE 0.15 % (205.5 MCG)* 1 [place] as needed. CALCITRATE 200 MG (950 MG) TA* Take 1,900 mg by mouth twice * CHOLECALCIFEROL (VITAMIN D3) * Take 1,000 Units by mouth onc* DICYCLOMINE 20 MG TABLET Take 1 tablet by mouth three * MULTIVITAMIN TABLET Take 1 tablet by mouth once d* PROBIOTIC ORAL Take by mouth once daily. SIMVASTATIN 5 MG TABLET Take 1 tablet by mouth every * * DIFLUCAN ORAL Take by mouth as needed. * ESTRADIOL 25 MCG VAGINAL TABL* Use vaginally. TWICE WEEKLY Problem List As Of Date 12/12/2017 Noted Resolved PERS HX OF IRRADIATION [Z92.3] INVALID FOR* More... Mitral valve disorders [I05.9] INVALID FOR* Priority: B More... ABDOMINAL PAIN LLQ [R10.32] 02/01/2007 Other and unspecified hyperlipidemia [E78.5] INVALID FOR* Priority: A FAMILY HX GI MALIGNANCY [Z80.0] INVALID FOR* Ovarian cyst [N83.209] Priority: C Diverticulosis [K57.90] INVALID FOR* Priority: C Interstitial cystitis [N30.10] Priority: B Osteoporosis [M81.0] INVALID FOR* Priority: D Family history of Alzheimer's disease [Z82.0] INVALID FOR* Routine gynecological examination [Z01.419] INVALID FOR* Priority: D More... Encounter Status:Closed by LUIS ARTHUR PA-C on 12/12/17 Observed: 10/22/2017 Status: F Source: PATTY CULTURE, THROAT 11:43 AM [facility] REPOSITORY Culture, Throat Mixed normal throat gulshan. No Haemophilus, Streptococcus pneumoniae, beta-hemolytic Streptococcus or Staphylococcus aureus isolated. Performed By: #### M100.1000 #### [facility] [address] [place], [address] PAP IG W/REFLEX HR Collected: 09/15/2017 Status: F Source: PATTY HPV APTIMA 10:00 AM [facility] REPOSITORY Order Comment: CYTOLOGY INFORMATION: - CLINICAL INFORMATION: POSTMENOPAUSAL - DATE LMP/MENOPAUSE: - COLLECTION VIAL: Thin Prep Vial - PRACTICE COORDINATOR SOURCE: CERVICAL/ENDOCERVICAL - COLLECTION TECHNIQUE: BRUSH/SPATULA Specimen Comment: [id number] Specimen Comment: No. of containers..01 ThinPrep Vial TYPE CODE TESTS RESULT OUT OF RANGE REFERENCE UNITS LAB L7400.0800 . Normal DIAGN Comment Result Comment: NEGATIVE FOR INTRAEPITHELIAL LESION AND MALIGNANCY. CELLULAR CHANGES ASSOCIATED WITH ATROPHY ARE PRESENT. THIS SPECIMEN WAS RESCREENED PART OF OUR DESKTOP ARCHITECT PROGRAM. LAB L7400.0900 . Normal ADEQ Comment Result Comment: Satisfactory for evaluation. Endocervical component may not be distinguished in cases of atrophy. LAB L7400.1400 . Normal PERFORM Comment Result Comment: Patric Boyd, Bar Host (ASCP) LAB L7400.1500 . Normal QC Comment REV Result Comment: Vilma Arroyo, Supervisory Bar Host (ASCP) LAB L7400.2575 . Normal TEST METHOD Comment Result Comment: This liquid based ThinPrep(R) pap test was screened with the use of an image guided system. LAB L7400.2600 . Normal . COMM LAB L7400.2700 . Normal PAPSMR Comment Result Comment: The Pap smear is a screening test designed to aid in the detection of premalignant and malignant conditions of the uterine cervix. It is not a diagnostic procedure and should not be used as the sole means of detecting cervical cancer. Both false-positive and false-negative reports do occur. LAB L7400.2800 . Normal HPV RFLX Comment Result Comment: The HPV DNA reflex criteria were not met with this specimen result therefore, no HPV testing was performed. Performed at: [address] [id number] Billing Administrator: Radha Espinal MD, Phone: [phone] Performed By: #### L7400.0357 #### [facility] (refer to report for specific site) refer to report for address and phone number ALLERGIES ALLERGIES DATE TYPE / NAME / CODE REACTION SEVERITY SOURCE CODE 02/20/2018 Drug prochlorperazine Nausea Unknown [place] Allergy/41 edisylate/[id number]( Community [id number]( RXNO) [facility]) Repository 02/20/2018 Drug prochlorperazine Nausea Unknown [place] Allergy/41 maleate/[id number](RX Community 0476068( NORM) [facility]) Repository 02/20/2018 Drug Penicillins/[id number] Nausea Unknown [place] Allergy/41 6(RXNORM) Community 2807643([facility]) Repository 02/20/2018 Drug sulfamethoxazole/F006 Nausea Unknown [place] Allergy/41 454287(RXNORM) Community 9919915([facility]) Repository 02/20/2018 Drug trimethoprim/K6982184 Nausea Unknown [place] Allergy/41 73(RXNORM) Community 8091640([facility]) Repository 02/20/2018 Drug tetanus and Nausea Unknown [place] Allergy/41 diphtheria Community 6423052( toxoids/[id number]([facility]) NORM) Repository 05/28/2008 DRUG METOPROLOL INTOLERANCE [place] INGREDI/41 Clinic Main 7006545([facility]) Repository 08/25/2005 DRUG/96061 SULFAMETHOXAZOLE-TRIM [place] 1003(SNOME ETHOPRIM Clinic Main D CT) [place] Repository 08/25/2005 DRUG PROCHLORPERAZINE ANAPHYLAXIS [place] INGREDI/41 EDISYLATE Clinic Main 0848274([facility]) Repository 08/25/2005 Drug PENICILLINS GI UPSET [place] Class/4195 Clinic Main [address]([facility] ED CT) Repository 08/25/2005 Drug PHENOTHIAZINES [place] Class/4195 Clinic Main [address]([facility] ED CT) Repository ENCOUNTERS ENCOUNTERS ADMIT/DISCHARGE ACCOUNT ADMITTING ENCOUNTER LOCATION SOURCE NUMBER CLASS 08/03/2018 [id number] Ambulatory [facility] ing:LABSPEC Repository 07/09/2018 [id number] Ambulatory [facility] ing:OPBI Repository 05/20/2018/05/23/20 [id number] Ambulatory [address] Repository 03/18/2018 [id number] Ambulatory [facility] ing:CT Repository 02/20/2018/02/21/20 [id number] Emergency [address] ing:ED Repository 01/24/2018 [id number] Ambulatory [facility] ing:MFPLAB Repository 12/24/2017/12/25/19 [id number] Ambulatory [address] Repository 12/12/2017/12/15/19 [id number] Ambulatory [address] Repository 10/22/2017 [id number] Ambulatory [facility] ing:LABSPEC Repository 09/15/2017 [id number] [facility] ing:LABSPEC Repository PAYERS PAYERS ENCOUNTER GUARANTOR PAYER SUBSCRIBER SOURCE 08/03/2018 TRACI A Primary TRACI A [place] [id number] Insurance:MEDICARE BROOKERDOB: Community FIRETHORN PART A [facility] [id number] Number: Repository [id number]: 330 [id number] [phone] () Date:2018-08-02 08/03/2018 Secondary TRACI A [place] Insurance:MEDICAL BROOKERDOB: [facility] [id number] Hospital Number: Repository [id number] Date:[id number] [address]AW: 08/03/2018 Tertiary NOT GIVENUNK [place] Insurance:SELF PAY [facility] Number: Effective Repository Date:2018-08-02 07/09/2018 TRACI A Primary TRACI A [place] [id number] Insurance:MEDICARE BROOKERDOB: Community FIRETHORN PART A [facility] [id number] [place] [address] Number: Repository [id number]: 330 [id number] [phone] (HP) Date:2018-05-10 07/09/2018 Secondary TRACI A [place] Insurance:MEDICAL BROOKERDOB: [facility] [id number] Hospital Number: Repository [id number] Date:0675-61-61SF [address] [address]OM: 07/09/2018 Tertiary NOT GIVENUNK [place] Insurance:SELF PAY [facility] Number: Effective Repository Date:2018-05-10 03/18/2018 Traci A Primary Traci A [place] [id number] Insurance:MEDICARE BrookerDOB: Community FIRETHORN PART A [facility] [id number] Number: Repository [address]Sqk: 330 [id number] [phone] () Date:2018-03-17 03/18/2018 Secondary Traci A [place] Insurance:MEDICAL BrookerDOB: [facility] [id number] Hospital Number: Repository [id number] Date:[id number] [address]LZ: 03/18/2018 Tertiary NOT GIVENUNK [place] Insurance:SELF PAY [facility] Number: Effective Repository Date:2018-03-17 02/20/2018 Traci A Primary Traci A [place] [id number] Insurance:MEDICARE BrookerDOB: Community FIRETHORN PART A [facility] [id number] Number: Repository [id number]: 330 [id number] [phone] () Date:2018-02-20 02/20/2018 Secondary Traci A [place] Insurance:MEDICAL BrookerDOB: [facility] [id number] Hospital Number: Repository [id number] Date:1346-47-52ND [address] [address]BX: 02/20/2018 Tertiary NOT GIVENUNK [place] Insurance:SELF PAY [facility] Number: Effective Repository Date:2018-02-20 01/24/2018 Traci A Primary Traci A [place] [id number] Insurance:MEDICARE BrookerDOB: Community FIRETHORN PART A [facility] [id number] Number: Repository [id number]: 330 [id number] [phone] (HP) Date:2018-01-24 01/24/2018 Secondary Traci A [place] Insurance:MEDICAL BrookerDOB: [facility] [id number] Hospital Number: Repository [id number] Date:2307-62-73BQ [address] [address]QV: 01/24/2018 Tertiary NOT GIVENUNK [place] Insurance:SELF PAY [facility] Number: Effective Repository Date:2018-01-24 10/22/2017 Traci A Primary Traci A [place] [id number] Insurance:MEDICARE BrookerDOB: [facility] FIRETHORN PART A [facility] [id number] Number: Repository [id number]: 330 [id number] [phone] (HP) Date:2017-10-22 10/22/2017 Secondary Traci A [place] Insurance:MEDICAL BrookerDOB: [facility] [id number] Hospital Number: Repository [id number] Date:5405-46-59IU [address] [address]YT: 10/22/2017 Tertiary NOT GIVENUNK [place] Insurance:SELF PAY [facility] Number: Effective Repository Date:2017-10-22 09/15/2017 Traci A Primary Traci A [place] [id number] Insurance:MEDICARE BrookerDOB: Community FIRETHORN PART A [facility] [id number] Number: Repository [id number]: 330 [id number] [phone] (HP) Date:2017-09-15 09/15/2017 Secondary Traci A [place] Insurance:MEDICAL BrookerDOB: [facility] [id number] Hospital Number: Repository [id number] Date:3648-42-52[address], [place] [address]OG: 09/15/2017 Tertiary NOT GIVENUNK [place] Insurance:SELF PAY [facility] Effective Repository Date:2017-09-15
== END ==
PROVIDERS: Family Provider Family Medicine; PCP Family Medicine; Referring Provider Family Medicine; Visit Provider Family Medicine
DX: R19.7 Diarrhea, unspecified (principal)
CPT/HCPCS: 87493

== ENCOUNTER → 2018-09-02 08:30 | Outpatient (CLI) | payer MEDICARE, OTHER, SELFPAY ==
[2018-09-02 10:31] LABS: ALB/GLOB Ratio 1.1 RATIO (0.9-2.4); AST(SGOT) 17 U/L (15-37); Alanine Aminotransfer ALT/SGPT 29 U/L (13-56); Albumin, Serum 3.9 g/dL (3.2-5.0); Alkaline Phosphatase 78 U/L (45-117); Anion Gap 11 (5-15); BUN 9 mg/dL (7-18); BUN/Creat Ratio 11.2 RATIO (10-20); Calcium,Total 8.7 mg/dL (8.5-10.1); Chloride 104 mmol/L (98-107); EST Glomerular Filtration Rate 76 mL/min (>60); Est Glom Filt Rate - Afr Amer 92 mL/min (>60); Globulin 3.5 g/dL (2.2-4.2); Glucose 92 mg/dL (74-106); Prealbumin 24.5 mg/dL (20.0-40.0); Protein, Total 7.4 g/dL (6.4-8.2); Sodium Level 142 mmol/L (136-145)
== END ==
PROVIDERS: Family Provider Family Medicine; PCP Family Medicine; Referring Provider Family Medicine; Visit Provider Family Medicine
DX: M81.0 Age-related osteoporosis without current pathological fracture (principal); E55.9 Vitamin D deficiency, unspecified; K58.0 Irritable bowel syndrome with diarrhea
CPT/HCPCS: 36415; 80053; 82306; 84134

== ENCOUNTER → 2019-02-10 09:54 | Outpatient (CLI) | payer MEDICARE, OTHER, SELFPAY ==
[2019-02-10 12:21] LABS: Absolute Lymphocyte Count 1.81 X10^3/uL (0.83-4.51); Absolute Neutrophil Count 3.1 X10^3/uL (2.0-7.7); Basophil# 0.07 X10^3/uL; Basophil% 1.3 % (0-1); Eosinophil# 0.08 X10^3/uL; Eosinophils% 1.4 % (0-5); Hematocrit 38.6 % (37-47); Hemoglobin 12.6 g/dL (12.0-15.0); Lymphocyte # 1.81 X10^3/ul (4.0); Lymphocyte % 32.5 % (19-41); Mean Corp Hgb Conc 32.6 g/dL (32-36); Mean Corpuscular Hgb 30.1 pg (27.0-32.0); Mean Corpuscular Volume 92.3 fL (81-99); Mean Platelet Vol. 10.8 fl (6.2-12.0); Monocyte# 0.49 X10^3/uL; Monocyte% 8.8 % (0-10); NRBC Flagged by Analyzer 0 % (0-5); Neutrophil # 3.11 X10^3/uL (2.7-7.7); Neutrophil % 55.8 % (47-70); Platelet Count 298 K/mm3 (150-450); RBC Distribution Width CV 12.6 % (11.6-14.6); RBC Distribution Width SD 42.5 fl (35.1-43.9); Red Blood Count 4.18 M/mm3 (4.2-5.4); White Blood Count 5.6 K/mm3 (4.4-11.0)
[2019-02-10 12:36] LABS: AST(SGOT) 19 U/L (15-37); Alanine Aminotransfer ALT/SGPT 26 U/L (13-56); Albumin, Serum 3.9 g/dL (3.2-5.0); Alkaline Phosphatase 94 U/L (45-117); Anion Gap 7 (5-15); BUN 10 mg/dL (7-18); BUN/Creat Ratio 13.5 RATIO (10-20); Calcium,Total 9.1 mg/dL (8.5-10.1); Chloride 106 mmol/L (98-107); Cholesterol 193 mg/dL (200); Creatinine, Serum 0.74 mg/dL (0.55-1.02); EST Glomerular Filtration Rate 83 mL/min (>60); Est Glom Filt Rate - Afr Amer 101 mL/min (>60); Globulin 4.1 g/dL (2.2-4.2); Glucose 86 mg/dL (74-106); High Density Lipoprotein 77 mg/dL; Potassium 4.1 mmol/L (3.5-5.1); Sodium Level 140 mmol/L (136-145); Triglycerides 43 mg/dL; Very Low Density Lipoprotein 9 mg/dL (5-40)
== END ==
PROVIDERS: Family Provider Family Medicine; PCP Family Medicine; Referring Provider Family Medicine; Visit Provider Family Medicine
DX: E78.00 Pure hypercholesterolemia, unspecified (principal); M81.0 Age-related osteoporosis without current pathological fracture
CPT/HCPCS: 36415; 80053; 80061; 82306; 85025

== ENCOUNTER → 2019-07-11 10:17 | Outpatient (CLI) | payer MEDICARE, OTHER, SELFPAY ==
--- NOTE | 2019-07-11 10:19 | BI_ITS ---
MAMMOGRAPHY - BILATERAL SCREENING 3-D TOMOSYNTHESIS REASON FOR EXAM: Female, 69 years old. BILAT SCREENING - FAM HX OF MAT 1ST COUSIN @ AGE 41'' - LT ASPIRATION 2008 PERTINENT HISTORY: No significant family history. TECHNIQUE: 2-D mammograms and 3-D Tomosynthesis of the breast (s) were performed. CAD was performed. COMPARISON: July 09, 2018 FINDINGS: The breast composition is heterogeneously dense that can obscure small breast masses. Scattered benign calcifications are seen. No dense spiculated masses or suspicious microcalcifications are identified. No architectural distortion is identified. There is no skin thickening or retraction. There has been no significant change since the prior study. BI/SCREEN MAMM (CAD) W/MASOOD BILAT IMPRESSION: No mammographic signs of malignancy. Routine yearly mammograms recommended. ASSESSMENT CATEGORY: BIRADS Category 2: Benign. A letter regarding these results will be sent to the patient by the facility within 30 days. FOLLOW UP RECOMMENDATION: Yearly follow up mammogram recommended. (A) Approximately 10% of breast cancers are not detected by mammography. A normal mammogram should not delay biopsy of a clinically suspicious abnormality. Electronically Signed: Corey Haley MD at 8:41 EST , Service support ,
== END ==
PROVIDERS: Family Provider Family Medicine; PCP Family Medicine; Referring Provider Obstetrics & Gynecology; Visit Provider Obstetrics & Gynecology
DX: Z12.31 Encounter for screening mammogram for malignant neoplasm of breast (principal)
CPT/HCPCS: 77063; 77067

== ENCOUNTER → 2020-02-13 09:42 | Outpatient (CLI) | payer MEDICARE, OTHER, SELFPAY ==
[2020-02-13 12:18] LABS: Absolute Lymphocyte Count 1.92 X10^3/uL (0.83-4.51); Absolute Neutrophil Count 3.3 X10^3/uL (2.0-7.7); Basophil# 0.08 X10^3/uL; Basophil% 1.4 % (0-1); Eosinophil# 0.11 X10^3/uL; Eosinophils% 1.9 % (0-5); Hematocrit 38.1 % (37-47); Hemoglobin 12.4 g/dL (12.0-15.0); Lymphocyte # 1.92 X10^3/ul (4.0); Lymphocyte % 32.9 % (19-41); Mean Corp Hgb Conc 32.5 g/dL (32-36); Mean Corpuscular Hgb 30.8 pg (27.0-32.0); Mean Corpuscular Volume 94.5 fL (81-99); Mean Platelet Vol. 10.8 fl (6.2-12.0); Monocyte# 0.41 X10^3/uL; NRBC Flagged by Analyzer 0 % (0-5); Neutrophil # 3.32 X10^3/uL (2.7-7.7); Neutrophil % 56.8 % (47-70); Platelet Count 287 K/mm3 (150-450); RBC Distribution Width CV 12.7 % (11.6-14.6); RBC Distribution Width SD 43.5 fl (35.1-43.9); Red Blood Count 4.03 M/mm3 (4.2-5.4); White Blood Count 5.8 K/mm3 (4.4-11.0)
[2020-02-13 12:19] LABS: PTHIN 40.5 pg/mL (18.4-80.1)
[2020-02-13 12:22] LABS: Vitamin D,25 Hydroxy 49.4 ng/mL
[2020-02-13 12:33] LABS: AST(SGOT) 23 U/L (15-37); Alanine Aminotransfer ALT/SGPT 27 U/L (13-56); Alkaline Phosphatase 82 U/L (45-117); Anion Gap 5 (5-15); BUN 9 mg/dL (7-18); Calcium,Total 8.9 mg/dL (8.5-10.1); Chloride 107 mmol/L (98-107); Cholesterol 189 mg/dL (200); Creatinine, Serum 0.75 mg/dL (0.55-1.02); EST Glomerular Filtration Rate 82 mL/min (>60); Est Glom Filt Rate - Afr Amer 99 mL/min (>60); Globulin 4.2 g/dL (2.2-4.2); Glucose 90 mg/dL (74-106); High Density Lipoprotein 72 mg/dL; Magnesium 2.4 mg/dL (1.6-2.6); Potassium 4.1 mmol/L (3.5-5.1); Protein, Total 8.2 g/dL (6.4-8.2); Sodium Level 139 mmol/L (136-145); Thyroid Stim Hormone (TSH) 1.33 uIU/mL (0.358-3.74); Triglycerides 85 mg/dL; Very Low Density Lipoprotein 17 mg/dL (5-40)
== END ==
PROVIDERS: PCP Family Medicine; Referring Provider Family Medicine; Visit Provider Family Medicine
DX: E78.00 Pure hypercholesterolemia, unspecified (principal); D72.819 Decreased white blood cell count, unspecified; M81.0 Age-related osteoporosis without current pathological fracture
CPT/HCPCS: 36415; 80053; 80061; 82306; 83735; 83970; 84443; 85025

== ENCOUNTER → 2020-02-20 09:45 | Outpatient (CLI) | payer MEDICARE, OTHER, SELFPAY ==
--- NOTE | 2020-02-20 09:49 | BD_ITS ---
STUDY: DUAL ENERGY X-RAY ABSORPTIOMETRY / DXA REASON FOR EXAM: Female, 69 years old. 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 COMPARISON: None. FINDINGS: Lumbar Spine (L1-L4): g/cm2 (0.862) / T-score (-2.6) / Z-score (-1.0) Findings are suggestive of mild osteoporosis with abnormal increase fracture risk. Left Femur Total: g/cm2 (0.669) / T-score (-2.7) / Z-score (-1.3) Left Femoral Neck: g/cm2 (0.622) / T-score (-3.0) / Z-score (-1.4) Right Femur Total: g/cm2 (0.689) / T-score (-2.5) / Z-score (-1.1) Right Femoral Neck: g/cm2 (0.683) / T-score (-2.6) / Z-score (-0.9) The T-Scores on the most recent prior examination were: Lumbar Spine (L1-L4): There has been +9.8% change of bone density since the previous examination. Left Femur Total: -1.3% change. . Right Femur Total: 0.3% improvement. . BD/Dexa Bone Density Study IMPRESSION: The patient is considered osteoporosis in the lumbar spine and left hip and borderline osteoporosis in the right hip as outlined below according to World Shon Organization (WHO) criteria with a abnormal increase fracture risk in the lumbar spine and left hip and mild increase fracture risk in the right hip. There has been +9.8% improvement of bone density in the lumbar spine, 0.3% improvement in the right hip and -1.3% change in the left hip bone density since the previous examination. Reference Information: The T-score is the number of standard deviations above or below the standard which is normal for young adults at their peak bone mineral density. The World Health Organization (WHO) interprets the T-scores as follows: Above -1 Normal bone density Between -1 and -2.5 Osteopenia Equal to / or below -2.5 Osteoporosis As a practical clinical guideline, osteopenia may be graded as follows: Mild -1 through -1.5 Moderate -1.6 through -2.0 Severe -2.1 through -2.4 The Z-score is the number of standard deviations above or below age-matched controls. A Z-score of less than -1.5 would be considered abnormal. References: 1. NIH Osteoporosis and Related Bone Diseases http://www.osteo.org 2. International Society for Clinical Densitometry http://www.iscd.org 3. National Osteoporosis Foundation http://www.nof.org Electronically Signed: Berlin Fortune MD at 16:27 EDT , Service support ,
== END ==
PROVIDERS: PCP Family Medicine; Referring Provider Family Medicine; Visit Provider Family Medicine
DX: M81.0 Age-related osteoporosis without current pathological fracture (principal)
CPT/HCPCS: 77080

== ENCOUNTER → 2020-07-20 09:50 | Outpatient (CLI) | payer MEDICARE, OTHER, SELFPAY ==
--- NOTE | 2020-07-20 09:52 | BI_ITS ---
MAMMOGRAPHY - BILATERAL SCREENING REASON FOR EXAM: Female, 70 years old. Routine annual screening examination. PERTINENT HISTORY: Non-contributory. TECHNIQUE: Digital bilateral breast masood (3D mammographic acquisition) in the CC and MLO projections. 2-D mediolateral oblique (MLO) and craniocaudad (CC) views of both breasts were obtained. CAD: Full Field Digital Mammography with Computer Added Detection was performed. COMPARISON: Comparison is made with prior study dated 07/11/2019 and 07/09/2018. FINDINGS: Breast Composition: The breasts are heterogeneously dense, which may obscure small masses. There are no dominant masses or suspicious calcifications. No other significant abnormalities are identified. There has been no significant change since the prior study. BI/SCREEN MAMM (CAD) W/MASOOD BILAT IMPRESSION: Stable bilateral screening mammogram. Yearly follow-up mammogram recommended. (A) ASSESSMENT CATEGORY: BIRADS Category 1: Negative. A letter regarding these results will be sent to the patient by the facility within 30 days. Approximately 10% of breast cancers are not detected by mammography. A normal mammogram should not delay biopsy of a clinically suspicious abnormality. [id number] Electronically Signed: Mann Moses, at 9:09 EST , Service support ,
== END ==
PROVIDERS: PCP Family Medicine; Referring Provider Obstetrics & Gynecology; Visit Provider Obstetrics & Gynecology
DX: Z12.31 Encounter for screening mammogram for malignant neoplasm of breast (principal)
CPT/HCPCS: 77063; 77067

== ENCOUNTER → 2021-01-14 12:09 | Outpatient (CLI) | payer MEDICARE, OTHER, SELFPAY ==
--- NOTE | 2021-01-14 12:16 | RAD_ITS ---
STUDY: X-RAY LEFT FOOT, FIFTH TOE REASON FOR EXAM: Female, 70 years old. Pain following injury. TECHNIQUE: 3 view(s) of the toe were obtained. COMPARISON: None. FINDINGS: Normal visualized metatarsus. Normal metatarsophalangeal (M.T.P) joint. Normal interphalangeal joints. Nondisplaced transverse fracture of the distal aspect of the proximal phalanx of the fifth toe. Soft tissue swelling. RAD/Toe(s) Min 2 Views IMPRESSION: Nondisplaced transverse fracture along the distal aspect of the proximal phalanx of the fifth toe with overlying soft tissue swelling. Electronically Signed: Mann Moses MD at 13:19 EDT , Service support ,
--- NOTE | 2021-01-14 12:16 | RAD_ITS ---
STUDY: X-RAY LEFT FOOT, fourth and fifth toes. REASON FOR EXAM: Female, 70 years old. Pain and bruising following injury to the fourth toe. TECHNIQUE: 3 view(s) of the toe were obtained. COMPARISON: None. FINDINGS: Normal visualized metatarsus. Normal metatarsophalangeal (M.T.P) joint. Normal interphalangeal joints. Nondisplaced transverse fracture of the distal aspect of the proximal phalanx of the fifth toe. Soft tissue swelling. RAD/Toe(s) Min 2 Views IMPRESSION: Nondisplaced transverse fracture through the distal aspect of the proximal phalanx of the fifth toe with overlying soft tissue swelling. Electronically Signed: Mann Moses MD at 12:14 EDT , Service support ,
== END ==
PROVIDERS: PCP Family Medicine; Referring Provider Family Medicine; Visit Provider Family Medicine
DX: M79.675 Pain in left toe(s) (principal)
CPT/HCPCS: 73660

== ENCOUNTER → 2021-02-20 17:43 | Outpatient (CLI) | payer MEDICARE, OTHER, SELFPAY ==
[2021-02-20 20:01] LABS: Probe Check PASS; Specimen Processing Control PASS
== END ==
PROVIDERS: PCP Family Medicine; Visit Provider Registered Nurse
DX: Z20.822 Contact with and (suspected) exposure to COVID-19 (principal)
CPT/HCPCS: 87635; U0005; U0003

== ENCOUNTER 2021-07-22 10:06 | Outpatient (CLI) | payer MEDICARE, OTHER, SELFPAY ==
--- NOTE | 2021-07-22 10:11 | BI_ITS ---
MAMMOGRAPHY - BILATERAL SCREENING REASON FOR EXAM: Female, 71 years old. Routine annual screening examination. PERTINENT HISTORY: Non-contributory. Remote left breast aspiration. TECHNIQUE: Digital bilateral breast masood (3D mammographic acquisition) in the CC and MLO projections. 2-D mediolateral oblique (MLO) and craniocaudad (CC) views of both breasts were obtained. CAD: Full Field Digital Mammography with Computer Added Detection was performed. COMPARISON: Comparison is made with prior study dated 07/20/2020 and 07/11/2019. FINDINGS: Breast Composition: The breasts are heterogeneously dense, which may obscure small masses. There are no dominant masses or suspicious calcifications. No other significant abnormalities are identified. There has been no significant change since the prior study. BI/SCRN MAMM (CAD)W/MASOOD BILAT IMPRESSION: Stable bilateral screening mammogram. Yearly follow-up mammogram recommended. (A) ASSESSMENT CATEGORY: BIRADS Category 1: Negative. A letter regarding these results will be sent to the patient by the facility within 30 days. Approximately 10% of breast cancers are not detected by mammography. A normal mammogram should not delay biopsy of a clinically suspicious abnormality. [id number] Electronically Signed: Mann Moses MD at 11:48 EST , Service support ,
== END 2021-07-22 23:59 | disposition short-term general hospital (02) ==
LOC: OPBI 10:08
PROVIDERS: PCP Family Medicine; Referring Provider Obstetrics & Gynecology; Visit Provider Obstetrics & Gynecology
DX: Z12.31 Encounter for screening mammogram for malignant neoplasm of breast (principal)
CPT/HCPCS: 77063; 77067

== ENCOUNTER 2021-10-17 14:53 | Outpatient (CLI) | payer MEDICARE, OTHER, SELFPAY | END 2021-10-17 23:59 | disposition home or self-care (01) | LOC: LABSPEC 14:55 | PROVIDERS: PCP Family Medicine; Visit Provider Family Medicine | DX: N39.0 Urinary tract infection, site not specified (principal) | CPT/HCPCS: 87086 ==

== ENCOUNTER → 2021-10-30 | Outpatient (CLI) | payer MEDICARE, OTHER, SELFPAY | END | disposition home or self-care (01) | LOC: LABSPEC 16:01 | PROVIDERS: PCP Family Medicine; Visit Provider Family Medicine | DX: N39.9 Disorder of urinary system, unspecified (principal); N76.0 Acute vaginitis | CPT/HCPCS: 87086 ==

== ENCOUNTER → 2021-10-31 | Outpatient (CLI) | payer MEDICARE, OTHER, SELFPAY ==
[2021-10-31 10:20] LABS: Absolute Lymphocyte Count 1.98 X10^3/uL (0.83-4.51); Absolute Neutrophil Count 2.5 X10^3/uL (2.0-7.7); Basophil# 0.07 X10^3/uL; Basophil% 1.4 % (0-1); Eosinophil# 0.09 X10^3/uL; Eosinophils% 1.8 % (0-5); Hematocrit 36.8 % (37-47); Lymphocyte # 1.98 X10^3/ul (0.83-4.51); Lymphocyte % 39.1 % (19-41); Mean Corp Hgb Conc 32.6 g/dL (32-36); Mean Corpuscular Hgb 29.7 pg (27.0-32.0); Mean Corpuscular Volume 91.1 fL (81-99); Mean Platelet Vol. 10.5 fl (6.2-12.0); Monocyte# 0.46 X10^3/uL; Monocyte% 9.1 % (0-10); NRBC Flagged by Analyzer 0 % (0-5); Neutrophil # 2.45 X10^3/uL (2.7-7.7); Neutrophil % 48.4 % (47-70); Platelet Count 301 K/mm3 (150-450); RBC Distribution Width CV 12.7 % (11.6-14.6); RBC Distribution Width SD 42.1 fl (35.1-43.9); Red Blood Count 4.04 M/mm3 (4.2-5.4); White Blood Count 5.1 K/mm3 (4.4-11.0)
[2021-10-31 10:35] LABS: Vitamin D,25 Hydroxy 34.5 ng/mL
[2021-10-31 10:43] LABS: ALB/GLOB Ratio 0.9 RATIO (0.9-2.4); AST(SGOT) 17 U/L (15-37); Alanine Aminotransfer ALT/SGPT 26 U/L (13-56); Albumin, Serum 3.7 g/dL (3.2-5.0); Alkaline Phosphatase 77 U/L (45-117); Anion Gap 6 (5-15); BUN 11 mg/dL (7-18); BUN/Creat Ratio 14.1 RATIO (10-20); CRP < 2.90 mg/L (0.0-3.0); Calcium,Total 8.4 mg/dL (8.5-10.1); Chloride 107 mmol/L (98-107); Cholesterol 174 mg/dL (200); Creatinine, Serum 0.78 mg/dL (0.55-1.02); EST Glomerular Filtration Rate 78 mL/min (>60); Est Glom Filt Rate - Afr Amer 94 mL/min (>60); Globulin 3.9 g/dL (2.2-4.2); Glucose 95 mg/dL (74-106); High Density Lipoprotein 62 mg/dL; Potassium 3.6 mmol/L (3.5-5.1); Protein, Total 7.6 g/dL (6.4-8.2); Sodium Level 138 mmol/L (136-145); T4 Free Direct 1.14 ng/dL (0.76-1.46); Thyroid Stim Hormone (TSH) 1.11 uIU/mL (0.358-3.74); Triglycerides 69 mg/dL; Very Low Density Lipoprotein 14 mg/dL (5-40)
[2021-11-03 14:02] LABS: PTHIN 39.4 pg/mL (18.4-80.1)
== END | disposition home or self-care (01) ==
LOC: MTLAB 08:19
PROVIDERS: PCP Family Medicine; Referring Provider Family Medicine; Visit Provider Family Medicine
DX: R10.814 Left lower quadrant abdominal tenderness (principal); E78.00 Pure hypercholesterolemia, unspecified; M81.0 Age-related osteoporosis without current pathological fracture; K58.0 Irritable bowel syndrome with diarrhea
CPT/HCPCS: 36415; 80053; 80061; 82306; 83970; 84439; 84443; 85025; 86140

== ENCOUNTER → 2022-01-23 | Outpatient (CLI) | payer MEDICARE, OTHER, SELFPAY | END | disposition home or self-care (01) | LOC: LABSPEC 15:19 | PROVIDERS: PCP Family Medicine; Visit Provider Family Medicine | DX: N39.9 Disorder of urinary system, unspecified (principal) | CPT/HCPCS: 87086; 87088 ==

== ENCOUNTER → 2022-07-30 | Outpatient (CLI) | payer MEDICARE, OTHER, SELFPAY ==
--- NOTE | 2022-07-30 08:32 | BI_ITS ---
MAMMOGRAPHY - BILATERAL SCREENING REASON FOR EXAM: Female, 72 years old. Routine annual screening examination. PERTINENT HISTORY: Non-contributory. TECHNIQUE: Digital bilateral breast sophia (3D mammographic acquisition) in the CC and MLO projections. 2-D mediolateral oblique (MLO) and craniocaudad (CC) views of both breasts were obtained. CAD: Full Field Digital Mammography with Computer Added Detection was performed. COMPARISON: Comparison is made with prior study dated 07/22/2021 and 07/20/2020. FINDINGS: Breast Composition: The breasts are heterogeneously dense, which may obscure small masses. There are no dominant masses or suspicious calcifications. No other significant abnormalities are identified. There has been no significant change since the prior study. BI/SCREENING MAMM (CAD), BILAT IMPRESSION: Stable bilateral screening mammogram. Yearly follow-up mammogram recommended. (A) ASSESSMENT CATEGORY: BIRADS Category 1: Negative. A letter regarding these results will be sent to the patient by the facility within 30 days. Approximately 10% of breast cancers are not detected by mammography. A normal mammogram should not delay biopsy of a clinically suspicious abnormality. [id number] Electronically Signed: Mann Moses MD at 9:34 EST ,
== END | disposition home or self-care (01) ==
LOC: OPBI 08:30
PROVIDERS: PCP Family Medicine; Visit Provider Family Medicine
DX: Z12.31 Encounter for screening mammogram for malignant neoplasm of breast (principal)
CPT/HCPCS: 77067

== ENCOUNTER → 2022-08-20 | Outpatient (CLI) | payer MEDICARE, OTHER, SELFPAY ==
[2022-08-20 15:57] LABS: Bacteria 0 SEEN /hpf (None Seen); Mucous, Urine 0 SEEN /hpf (<or=2+); Red Blood Cells-Urine 0 SEEN /hpf (0-5); Squamous Epithelial Cells - UA 0 SEEN /hpf (5-10); White Blood Cells 0 SEEN /hpf (0-5)
[2022-08-20 16:13] LABS: Color, Urine Yellow (Yellow); Glucose, Dipstick Normal (Normal); Ketone-Dipstick Negative (Negative); Leukocyte Esterase-Dipstick Negative /ul (Negative); Nitrite-Dipstick Negative (Negative); Occult Blood-Urine Negative /ul (Negative); Protein-Dipstick Negative (Negative); Urine Bilirubin Dipstick Negative (Negative); Urine Clarity Clear (Clear); Urine Urobilinogen Normal (Normal)
== END | disposition home or self-care (01) ==
LOC: LABSPEC 15:34
PROVIDERS: PCP Family Medicine; Visit Provider Physician Assistant
DX: N39.0 Urinary tract infection, site not specified (principal); R30.0 Dysuria
CPT/HCPCS: 81001; 87086

== ENCOUNTER → 2022-08-24 | Outpatient (CLI) | payer MEDICARE, OTHER, SELFPAY ==
[2022-08-24 12:15] LABS: Absolute Lymphocyte Count 1.73 X10^3/uL (0.83-4.51); Basophil# 0.05 X10^3/uL; Basophil% 1.1 % (0-1); Eosinophil# 0.22 X10^3/uL; Eosinophils% 4.8 % (0-5); Hematocrit 40.5 % (37-47); Hemoglobin 12.9 g/dL (12.0-15.0); Lymphocyte # 1.73 X10^3/ul (0.83-4.51); Lymphocyte % 37.5 % (19-41); Mean Corp Hgb Conc 31.9 g/dL (32-36); Mean Corpuscular Hgb 30.3 pg (27.0-32.0); Mean Corpuscular Volume 95.1 fL (81-99); Mean Platelet Vol. 9.9 fl (6.2-12.0); Monocyte# 0.57 X10^3/uL; Monocyte% 12.4 % (0-10); NRBC Flagged by Analyzer 0 % (0-5); Neutrophil # 2.03 X10^3/uL (2.7-7.7); Platelet Count 305 K/mm3 (150-450); RBC Distribution Width CV 13.2 % (11.6-14.6); Red Blood Count 4.26 M/mm3 (4.2-5.4); White Blood Count 4.6 K/mm3 (4.4-11.0)
[2022-08-24 12:41] LABS: Vitamin D,25 Hydroxy 44.3 ng/mL
[2022-08-24 13:02] LABS: ALB/GLOB Ratio 0.9 RATIO (0.9-2.4); AST(SGOT) 44 U/L (15-37); Alanine Aminotransfer ALT/SGPT 63 U/L (13-56); Albumin, Serum 3.9 g/dL (3.2-5.0); Alkaline Phosphatase 92 U/L (45-117); Anion Gap 7 (5-15); BUN 10 mg/dL (7-18); CRP 5.17 mg/L (0.0-3.0); Calcium,Total 9.4 mg/dL (8.5-10.1); Chloride 106 mmol/L (98-107); Cholesterol 197 mg/dL (200); Creatinine, Serum 0.84 mg/dL (0.55-1.02); EST Glomerular Filtration Rate 71 mL/min (>60); Est Glom Filt Rate - Afr Amer 86 mL/min (>60); Globulin 4.3 g/dL (2.2-4.2); Glucose 98 mg/dL (74-106); High Density Lipoprotein 64 mg/dL; Potassium 4.1 mmol/L (3.5-5.1); Protein, Total 8.2 g/dL (6.4-8.2); Sodium Level 139 mmol/L (136-145); T4 Free Direct 1.19 ng/dL (0.76-1.46); Thyroid Stim Hormone (TSH) 0.87 uIU/mL (0.358-3.74); Triglycerides 107 mg/dL; Very Low Density Lipoprotein 21 mg/dL (5-40)
== END | disposition home or self-care (01) ==
PROVIDERS: PCP Family Medicine; Visit Provider Family Medicine
DX: R10.814 Left lower quadrant abdominal tenderness (principal); N39.0 Urinary tract infection, site not specified; E78.00 Pure hypercholesterolemia, unspecified; M81.0 Age-related osteoporosis without current pathological fracture
CPT/HCPCS: 36415; 80053; 80061; 82306; 84439; 84443; 85025; 86140; 87086

== ENCOUNTER → 2022-09-29 | Outpatient (CLI) | payer MEDICARE, OTHER, SELFPAY ==
[2022-10-05 10:28] LABS: HPV APTIMA, High Risk Negative (Negative)
== END | disposition home or self-care (01) ==
LOC: LABSPEC 11:35
PROVIDERS: PCP Family Medicine; Visit Provider Student in an Organized Health Care Education/Training Program
DX: N39.0 Urinary tract infection, site not specified (principal); Z12.4 Encounter for screening for malignant neoplasm of cervix
CPT/HCPCS: 87086; 87624; 88175; G0145

== ENCOUNTER → 2023-01-21 | Outpatient (CLI) | payer MEDICARE, OTHER, SELFPAY | END | disposition home or self-care (01) | LOC: LABSPEC 10:53 | PROVIDERS: PCP Family Medicine; Visit Provider Nurse Practitioner Women's Health | DX: N76.0 Acute vaginitis (principal); N39.0 Urinary tract infection, site not specified | CPT/HCPCS: 87086; 87088; 87186 ==

== ENCOUNTER → 2023-03-01 | Outpatient (CLI) | payer MEDICARE, OTHER, SELFPAY | END | disposition home or self-care (01) | PROVIDERS: PCP Family Medicine; Visit Provider Nurse Practitioner Family | DX: R30.0 Dysuria (principal) | CPT/HCPCS: 87086; 87088; 87186 ==

== ENCOUNTER → 2023-05-05 | Outpatient (CLI) | payer MEDICARE, OTHER, SELFPAY ==
[2023-05-05 17:50] LABS: Bacteria 0 SEEN /hpf (None Seen); Mucous, Urine 0 SEEN /hpf (<or=2+); Red Blood Cells-Urine 0 SEEN /hpf (0-5); White Blood Cells 0 SEEN /hpf (0-5)
[2023-05-05 18:03] LABS: Color, Urine Yellow (Yellow); Glucose, Dipstick Normal (Normal); Ketone-Dipstick Negative (Negative); Leukocyte Esterase-Dipstick 100 /ul (Negative); Nitrite-Dipstick Negative (Negative); Occult Blood-Urine Negative /ul (Negative); Protein-Dipstick Negative (Negative); Urine Bilirubin Dipstick Negative (Negative); Urine Clarity Clear (Clear); Urine Urobilinogen Normal (Normal)
[2023-05-05 18:27] LABS: Squamous Epithelial Cells - UA 0-5 SEEN /hpf (5-10)
== END | disposition home or self-care (01) ==
PROVIDERS: PCP Family Medicine; Referring Provider Physician Assistant Surgical; Visit Provider Physician Assistant Surgical
DX: R30.0 Dysuria (principal)
CPT/HCPCS: 81001; 87086

== ENCOUNTER → 2023-08-04 | Outpatient (CLI) | payer MEDICARE, OTHER, SELFPAY ==
--- NOTE | 2023-08-04 08:25 | BI_ITS ---
MAMMOGRAPHY - BILATERAL SCREENING REASON FOR EXAM: Female, 73 years old. Routine annual screening examination. PERTINENT HISTORY: Non-contributory. TECHNIQUE: Digital bilateral breast masood (3D mammographic acquisition) in the CC and MLO projections. 2-D mediolateral oblique (MLO) and craniocaudad (CC) views of both breasts were obtained. CAD: Full Field Digital Mammography with Computer Added Detection was performed. COMPARISON: Comparison is made with prior study dated July 30, 2022 and July 22, 2021. FINDINGS: Breast Composition: The breasts are heterogeneously dense, which may obscure small masses. There are no dominant masses or suspicious calcifications. Stable small bilateral axillary lymph nodes. No other significant abnormalities are identified. There has been no significant change since the prior study. BI/SCRN MAMM (CAD)W/MASOOD BILAT IMPRESSION: Stable bilateral screening mammogram. Yearly follow-up mammogram recommended. (A) ASSESSMENT CATEGORY: BIRADS Category 2: Benign. A letter regarding these results will be sent to the patient by the facility within 30 days. Approximately 10% of breast cancers are not detected by mammography. A normal mammogram should not delay biopsy of a clinically suspicious abnormality. [id number] Electronically Signed: Mann Moses MD at 13:54 EST ,
--- OUTSIDE RECORDS SUMMARY | 2023-08-04 08:40 | XMS RPT_ITS | CCD ---
Author Name Unknown Address [address] [place] [address] Organization [facility] Care Team Providers Care Equipment Records Supervisor Name Role Phone DEREJE CABA Primary Care Unavailable OZZIE YAN Attending Unavailable Allergies Allergy Classification Reported Allergen(s) Allergy Type Date of Onset Reaction(s) Facility (1 source) Codeine; Translations: [CODEINE] Drug Allergy 01-28-20 [facility] Repository (1 source) Metoprolol; Translations: [METOPROLOL] Drug Allergy 05-28-20 [facility] Repository (1 source) Penicillins; Translations: [PENICILLINS] Propensity to adverse reactions to drug (disorder) 08-25-19 06 [facility] Repository (1 source) Phenothiazine; Translations: [PHENOTHIAZINES] Propensity to adverse reactions to drug (disorder) 08-25-19 06 [facility] Repository (1 source) Sulfamethoxazole / Trimethoprim; Translations: [SULFAMETHOXAZOLE-TR IMETHOPRIM] Drug Allergy 08-25-19 06 [facility] Repository (1 source) PROCHLORPERAZINE EDISYLATE; Translations: [PROCHLORPERAZINE EDISYLATE] Propensity to adverse reactions to drug (disorder) 08-25-19 06 [facility] Repository Problems Active Problems Problem Classification Problem Date Documented Da te Episodic/Chronic Other screening for suspected conditions (not mental disorders or infectious disease) (1 source) Encounter for screening for malignant neoplasm of colon; Translations: [Encounter for screening for malignant neoplasm of colon] Onset: 07-27-2023 Episodic Past or Other Problems Problem Classification Problem Date Documented Date Episodic/Chronic Residual codes; unclassified (1 source) Family history of malignant neoplasm of digestive organs; Translations: [Family history of malignant neoplasm of gastrointestinal tract] Onset: 02-14-2009 Episodic Results Test Name Value Interpretation Reference Range Facil ity Encounters Encounter Date Encounter Type Care Provider Facility Start: 07-27-2023 End: 07-28-2023 ambulatory DEREJE Shayy CABA Facility:[facility] Payers Date Payer Category Payer Medicare [id number] 2016 Medicare [id number] Progress note 07-27-2023 Note Date & Type Note Facility 07-27-2023 Note HNO ID: [id number] Author: OZZIE YAN PA-C Service: ? Author Type: Physician Delinquent Tax Collector Type: Progress Notes Filed: 07/27/2023 13:44 Note Text: HISTORY AND PHYSICAL Traci Dorantes 1950 REFERRING PHYSICIAN: No ref. provider found CHIEF COMPLAINT: Consult (Colonoscopy, family hx of colon ca, 5 year repeat) HPI: The patient is a 73 year old female referred for endoscopy. Traci notes a history of IBS which has been well controlled. Patient denies any change in bowel habits, weight changes, blood in stools, black tarry stools or abdominal pain. NOTES family history of colon cancer-mother The patient notes no upper GI complaints. Traci has undergone prior endoscopy. Last colonoscopy 04/03/[address] Leonardo under conscious sedation without concerning findings. Five year repeat colonoscopy was recommended based on family history of colon cancer. Patient denies chest pain, shortness of breath or recent hospitalizations. Denies problems with sedation in the past. 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 Hypercholesteremia IBS (irritable bowel syndrome) Interstitial cystitis Interstitial cystitis Leukopenia Lump on neck Mitral valve disorders(424.0) 07/12/2001 MVP Neck mass radiation exposure in childhood Osteoporosis, postmenopausal Other chronic cystitis Ovarian cyst Postmenopausal atrophic vaginitis Thyroid cancer (HCC) Urinary disorder Vaginal yeast infection Vitamin D deficiency PAST SURGICAL HISTORY Procedure Laterality Date APPENDECTOMY COLONOSCOPY FLX DX W/COLLJ SPEC WHEN PFRMD 01/08/2006 Colonoscopy COLONOSCOPY FLX DX W/COLLJ SPEC WHEN PFRMD 05/29/2011 Colonoscopy COLONOSCOPY FLX DX W/COLLJ SPEC WHEN PFRMD 04/03/2019 Colonoscopy OOPHORECTOMY, PART/TOTAL UNILAT/BILAT 2011 L tube and ovary OVARIAN CYSTECTOMY 04/2012 RHINP PRIM LATANDALAR CRTLGSAND/ELVTN NASAL TI Rhinoplasty TONSILLECTOMY PRIMARY/SECONDARY Tonsillectomy Current Outpatient Medications Medication Sig Saccharomyces boulardii (FLORASTOR ORAL) Take 250 mg by mouth once daily. Azelastine 0.15 % (205.5 mcg) spry 1 [place] as needed. CALCITRATE 200 mg (950 mg) tab Take 1,900 mg by mouth twice daily. cholecalciferol (VITAMIN D3) 1,000 unit tab tablet Take 1,000 Units by mouth once daily. multivitamin tablet Take 1 tablet by mouth once daily. simvastatin (ZOCOR) 5 mg tablet Take 1 tablet by mouth every evening. For cholesterol. FLUCONAZOLE (DIFLUCAN ORAL) Take by mouth as needed. Estradiol (VAGIFEM) 25 mcg VAGINAL vaginal tablet Use vaginally. TWICE WEEKLY dicyclomine (BENTYL) 20 mg tablet Take 1 tablet by mouth three times daily. (Patient not taking: Reported on 07/27/2023) LACTOBACILLUS ACIDOPHILUS (PROBIOTIC ORAL) Take by mouth once daily. (Patient not taking: Reported on 07/27/2023) No current facility-administered medications for this visit. ALLERGIES: Bactrim [Sulfamethoxazole-Trimethoprim], Codeine, Compazine [Prochlorperazine Edisylate], Metoprolol, Penicillins, and Phenothiazines PERSONAL HISTORY: Social History Tobacco Use Smoking status: Never Smokeless tobacco: Never Vaping Use Vaping Use: Never used Substance Use Topics Alcohol use: Yes Comment: OCC Drug use: No FAMILY HISTORY: FAMILY HISTORY Problem Relation Age of Onset other (hyperlipidemia) Father other (lung ca) Father smoker x 40 yrs Alzheimer's Disease Mother 1929. dementia since 2003. Colon Cancer Mother other (HTN) Mother diverticulitis/ part of colon removed other (DM) Mother other (Bilateral BKA) Maternal Grandfather Cancer Maternal Aunt ovarian REVIEW OF SYMPTOMS: The review of systems data was entered by the nurse and reviewed by nj Nursing Notes: Larissa Wilkinson RN 07/27/2023 12:58 PM Signed REVIEW OF SYSTEMS: General: The patient denies fatigue, denies weight loss, denies weight gain, denies feeling hot, and denies feelings of cold. Eyes: The patient denies glaucoma, denies eye injury/surgery, does not wear glasses or contacts. Ear/Nose/Throat: The patient denies allergies, denies hayfever, denies ear infections, and denies bloody noses. Cardiovascular: The patient denies chest pain, denies heart disease, denies high blood pressure,denies cardiac stent, denies prior heart attack, denies irregular heart beat, NOTES high cholesterol, denies poor circulation, denies heart failure, other cardiac issues, denies claudication, denies cold feet, denies peripheral arterial stent. Respiratory: The patient denies tuberculosis, denies pneumonia, denies frequent cough, denies pulmonary embolism, denies shortness of breath, and denies coughing up blood. Gastrointestinal: The patient denies difficulty swallowing, denies acid reflux, denies ulcers, denies vomiting, denies jaundi (more content not included)... [facility] Summary Purpose Family History No Family History Records Found Advance Directives No Advanced Directives Records Found Additional Source Comments INFORMATION SOURCE (unrecogn ized section and content) FOR RECORDS PERTAINING TO PATIENTS WHO ARE OR HAVE BEEN ENROLLED IN A CHEMICAL DEPENDENCY/SUBSTANCEABUSE PROGRAM, SOME INFORMATION MAY BE OMITTED. This clinical summary was aggregated from multiple sources. Caution should be exercised in using it in the provision of clinical care. This summary normalizes information from multiple sources, and as a consequence, information in this document may materially change the coding, format and clinical context of patient data. In addition, data may be omitted in some cases. CLINICAL DECISIONS SHOULD BE BASED ON THE PRIMARY CLINICAL RECORDS. [facility]. provides no warranty or guarantee of the accuracy or completeness of information in this document.
== END | disposition home or self-care (01) ==
LOC: OPBI 08:23
PROVIDERS: PCP Family Medicine; Referring Provider Family Medicine; Visit Provider Family Medicine
DX: Z12.31 Encounter for screening mammogram for malignant neoplasm of breast (principal)
CPT/HCPCS: 77063; 77067

== ENCOUNTER → 2023-08-05 | Outpatient (CLI) | payer MEDICARE, OTHER, SELFPAY ==
[2023-08-05 10:01] LABS: Absolute Lymphocyte Count 1.93 X10^3/uL (0.83-4.51); Absolute Neutrophil Count 2.8 X10^3/uL (2.0-7.7); Basophil# 0.06 X10^3/uL; Basophil% 1.1 % (0-1); Eosinophil# 0.09 X10^3/uL; Eosinophils% 1.7 % (0-5); Hematocrit 39.5 % (37-47); Hemoglobin 12.7 g/dL (12.0-15.0); Lymphocyte # 1.93 X10^3/ul (0.83-4.51); Lymphocyte % 36.1 % (19-41); Mean Corp Hgb Conc 32.2 g/dL (32-36); Mean Corpuscular Hgb 29.7 pg (27.0-32.0); Mean Corpuscular Volume 92.5 fL (81-99); Mean Platelet Vol. 10.7 fl (6.2-12.0); Monocyte# 0.45 X10^3/uL; Monocyte% 8.4 % (0-10); NRBC Flagged by Analyzer 0 % (0-5); Neutrophil # 2.81 X10^3/uL (2.7-7.7); Neutrophil % 52.5 % (47-70); Platelet Count 326 K/mm3 (150-450); RBC Distribution Width CV 12.8 % (11.6-14.6); RBC Distribution Width SD 43.2 fl (35.1-43.9); Red Blood Count 4.27 M/mm3 (4.2-5.4); White Blood Count 5.4 K/mm3 (4.4-11.0)
[2023-08-05 10:34] LABS: Vitamin D,25 Hydroxy 40.4 ng/mL
[2023-08-05 10:46] LABS: ALB/GLOB Ratio 0.9 RATIO (0.9-2.4); AST(SGOT) 18 U/L (15-37); Alanine Aminotransfer ALT/SGPT 24 U/L (13-56); Albumin, Serum 3.7 g/dL (3.2-5.0); Alkaline Phosphatase 86 U/L (45-117); Anion Gap 5 (5-15); BUN 11 mg/dL (7-18); BUN/Creat Ratio 14.3 RATIO (10-20); Calcium,Total 9.2 mg/dL (8.5-10.1); Chloride 106 mmol/L (98-107); Creatinine, Serum 0.77 mg/dL (0.55-1.02); EST Glomerular Filtration Rate 78 mL/min (>60); Est Glom Filt Rate - Afr Amer 95 mL/min (>60); Free T3 2.9 pg/mL (2.18-3.98); Glucose 99 mg/dL (74-106); Potassium 4.1 mmol/L (3.5-5.1); Protein, Total 7.7 g/dL (6.4-8.2); Sodium Level 137 mmol/L (136-145); T4 Free Direct 1.11 ng/dL (0.76-1.46); Thyroid Stim Hormone (TSH) 1.21 uIU/mL (0.358-3.74)
== END | disposition home or self-care (01) ==
LOC: MFPLAB 08:14
PROVIDERS: PCP Family Medicine; Visit Provider Family Medicine
DX: M81.0 Age-related osteoporosis without current pathological fracture (principal); E55.9 Vitamin D deficiency, unspecified; Z85.850 Personal history of malignant neoplasm of thyroid; K58.0 Irritable bowel syndrome with diarrhea
CPT/HCPCS: 36415; 80053; 82306; 84439; 84443; 84481; 85025

== ENCOUNTER → 2023-08-25 | Outpatient (CLI) | payer MEDICARE, OTHER, SELFPAY ==
--- NOTE | 2023-08-25 13:31 | BD_ITS ---
STUDY: DUAL ENERGY X-RAY ABSORPTIOMETRY / DXA REASON FOR EXAM: Female, 73 years old. 733.00OsteoporosisBONE DENSITY REASON FOR EXAM TECHNIQUE: Bone Mineral Density (BMD) measurements of lumbar spine and bilateral hips were obtained. COMPARISON: Comparison is made with prior study February 20, 2020. FINDINGS: Lumbar Spine (L1-L4): g/cm2 (0.702) / T-score (-3.1) / Z-score (-0.9) Findings are suggestive of osteoporosis with a high fracture risk. Left Femur Total: g/cm2 (0.601) / T-score (-2.8) / Z-score (-1.2) Left Femoral Neck: g/cm2 (0.489) / T-score (-3.2) / Z-score (-1.3) Right Femur Total: g/cm2 (0.623) / T-score (-2.6) / Z-score (-1.0) Right Femoral Neck: g/cm2 (0.474) / T-score (-3.4) / Z-score (-1.5) The T-Scores on the most recent prior examination were: Lumbar Spine (L1-L4): There has been worsening of bone density since the previous examination. Left Femur Total: which represents a worsening of 1.8%. Right Femur Total: which represents a worsening of 1.4%. BD/Dexa Bone Density Study IMPRESSION: The patient is considered osteoporotic as outlined below according to World Shon Organization (WHO) criteria with a high fracture risk. There has been worsening of bone density since the previous examination. Reference Information: The T-score is the number of standard deviations above or below the standard which is normal for young adults at their peak bone mineral density. The World Health Organization (WHO) interprets the T-scores as follows: Above -1 Normal bone density Between -1 and -2.5 Osteopenia Equal to / or below -2.5 Osteoporosis As a practical clinical guideline, osteopenia may be graded as follows: Mild -1 through -1.5 Moderate -1.6 through -2.0 Severe -2.1 through -2.4 The Z-score is the number of standard deviations above or below age-matched controls. A Z-score of less than -1.5 would be considered abnormal. References: 1. NIH Osteoporosis and Related Bone Diseases www osteo.org 2. International Society for Clinical Densitometry www iscd.org 3. National Osteoporosis Foundation www nof.org Electronically Signed: Mann Moses MD at 12:19 EST ,
--- OUTSIDE RECORDS SUMMARY | 2023-08-25 16:02 | XMS RPT_ITS | CCD ---
Author Name Unknown Address [address] [place] [address] Organization [facility] Care Team Providers Care Fine Sander Name Role Phone DEREJE CABA Primary Care Unavailable OZZIE YAN Attending Unavailable Allergies Allergy Classification Reported Allergen(s) Allergy Type Date of Onset Reaction(s) Facility (1 source) Codeine; Translations: [CODEINE] Drug Allergy 01-28-20 [facility] Repository (1 source) Metoprolol; Translations: [METOPROLOL] Drug Allergy 05-28-20 [facility] Repository (1 source) Penicillins; Translations: [PENICILLINS] Propensity to adverse reactions to drug (disorder) 08-25-19 06 [facility] Repository (1 source) Phenothiazine; Translations: [PHENOTHIAZINES] Propensity to adverse reactions to drug (disorder) 08-25-19 06 [facility] Repository (1 source) Sulfamethoxazole / Trimethoprim; Translations: [SULFAMETHOXAZOLE-TR IMETHOPRIM] Drug Allergy 08-25-19 06 [facility] Repository (1 source) PROCHLORPERAZINE EDISYLATE; Translations: [PROCHLORPERAZINE EDISYLATE] Propensity to adverse reactions to drug (disorder) 08-25-19 06 [facility] Repository Problems Active Problems Problem Classification Problem [...] 07-27-2023 End: 07-28-2023 ambulatory DEREJE Shayy CABA Facility:[facility] Payers Date Payer Category Payer Medicare [id number] 2016 Medicare [id number] Progress note 07-27-2023 Note Date & Type Note Facility 07-27-2023 Note HNO ID: [id number] Author: OZZIE YAN PA-C Service: ? Author Type: Physician Cutter Operator Helper Type: Progress Notes Filed: 07/27/2023 13:44 Note [...] Azelastine 0.15 % (205.5 mcg) spry 1 [place] as needed. CALCITRATE 200 mg (950 mg) [...] entered by the nurse and reviewed by sd Nursing Notes: Larissa Wilkinson RN 07/27/2023 12:58 [...] vomiting, denies jaundi (more content not included)... [facility] Summary Purpose Family History No Family History [...] BE BASED ON THE PRIMARY CLINICAL RECORDS. [facility] [employer] [facility]. provides no warranty or guarantee of the accuracy or completeness of information in this document.
== END | disposition home or self-care (01) ==
LOC: OPBD 13:31
PROVIDERS: PCP Family Medicine; Referring Provider Family Medicine; Visit Provider Family Medicine
DX: M81.0 Age-related osteoporosis without current pathological fracture (principal)
CPT/HCPCS: 77080

== ENCOUNTER → 2023-10-19 | Outpatient (CLI) | payer MEDICARE, OTHER, SELFPAY ==
[2023-10-19 10:29] LABS: Bacteria 0 SEEN /hpf (None Seen); Mucous, Urine 0 SEEN /hpf (<or=2+); Red Blood Cells-Urine 0 SEEN /hpf (0-5)
[2023-10-19 10:32] LABS: Color, Urine Yellow (Yellow); Glucose, Dipstick Normal (Normal); Ketone-Dipstick Negative (Negative); Leukocyte Esterase-Dipstick Negative /ul (Negative); Nitrite-Dipstick Negative (Negative); Occult Blood-Urine Negative /ul (Negative); Protein-Dipstick Negative (Negative); Urine Bilirubin Dipstick Negative (Negative); Urine Clarity Clear (Clear); Urine Urobilinogen Normal (Normal); Urine pH 6.5 (5.0 - 8.0)
[2023-10-19 10:45] LABS: Squamous Epithelial Cells - UA 0-5 SEEN /hpf (5-10); White Blood Cells 0-5 SEEN /hpf (0-5)
== END | disposition home or self-care (01) ==
LOC: LABSPEC 10:04
PROVIDERS: PCP Family Medicine; Referring Provider Physician Assistant; Visit Provider Physician Assistant
DX: R10.30 Lower abdominal pain, unspecified (principal)
CPT/HCPCS: 81001; 87086; 87088

== ENCOUNTER → 2024-01-25 | Outpatient (CLI) | payer MEDICARE, OTHER, SELFPAY ==
[2024-01-25 10:15] LABS: Mucous, Urine 0 SEEN /hpf (<or=2+); Red Blood Cells-Urine 0 SEEN /hpf (0-5); White Blood Cells 0 SEEN /hpf (0-5)
[2024-01-25 10:19] LABS: Color, Urine Straw (Yellow); Glucose, Dipstick Normal (Normal); Ketone-Dipstick Negative (Negative); Leukocyte Esterase-Dipstick Negative /ul (Negative); Nitrite-Dipstick Negative (Negative); Occult Blood-Urine Negative /ul (Negative); Protein-Dipstick Negative (Negative); Urine Bilirubin Dipstick Negative (Negative); Urine Clarity Sl. Cloudy (Clear); Urine Urobilinogen Normal (Normal); Urine pH 6.5 (5.0 - 8.0)
[2024-01-25 10:28] LABS: Bacteria 1+ /hpf (None Seen); Squamous Epithelial Cells - UA 5-10 SEEN /hpf (5-10)
== END | disposition home or self-care (01) ==
LOC: LABSPEC 10:07
PROVIDERS: PCP Family Medicine; Referring Provider Physician Assistant Medical; Visit Provider Physician Assistant Medical
DX: R30.0 Dysuria (principal)
CPT/HCPCS: 81001; 87086

== ENCOUNTER 2024-03-01 22:20 | Emergency (ER) | payer MEDICARE, OTHER, SELFPAY ==
[2024-03-01 22:21] VITALS: BP 138/75; PULSE 92; RESP 24; TEMP 36.9; O2SAT 100; BMI 21.9
[2024-03-01 23:21] LABS: Absolute Lymphocyte Count 2.15 X10^3/uL (0.83-4.51); Absolute Neutrophil Count 6.9 X10^3/uL (2.0-7.7); Basophil# 0.06 X10^3/uL; Basophil% 0.6 % (0-1); Eosinophil# 0.07 X10^3/uL; Eosinophils% 0.7 % (0-5); Hematocrit 37.6 % (37-47); Hemoglobin 12.4 g/dL (12.0-15.0); Lymphocyte # 2.15 X10^3/ul (0.83-4.51); Lymphocyte % 21.4 % (19-41); Mean Corpuscular Hgb 29.5 pg (27.0-32.0); Mean Corpuscular Volume 89.3 fL (81-99); Mean Platelet Vol. 10.5 fl (6.2-12.0); Monocyte# 0.81 X10^3/uL; Monocyte% 8.1 % (0-10); NRBC Flagged by Analyzer 0 % (0-5); Neutrophil # 6.91 X10^3/uL (2.7-7.7); Neutrophil % 68.8 % (47-70); Platelet Count 305 K/mm3 (150-450); RBC Distribution Width CV 12.3 % (11.6-14.6); RBC Distribution Width SD 39.9 fl (35.1-43.9); Red Blood Count 4.21 M/mm3 (4.2-5.4)
[2024-03-01] MEDS: 0.9% Normal Saline (1000mL) 1,000 ML 999 ML IV (23:23)
--- NOTE | 2024-03-01 23:28 | EX.ED.DYSGE1 ---
HPI History of Present Illness Chief Complaint: Nausea/Vomiting Narrative Narrative: 73-year-old female presents with nausea and vomiting as well as diarrhea as she is undergoing bowel prep for colonoscopy by Dr. Ott tomorrow. She states that her mother had history of colon cancer in her 70s, so this is her 5-year screening. She has done bowel preps before, but this 1 is different. She took Dulcolax and has been drinking MiraLAX. She states that the last bowel movement that she had was clear, but she became very nauseated and vomited a brownish substance. She vomited 3 times. She feels very lightheaded and shaky. She states she is anxious about the colonoscopy tomorrow as well, fearing that she would not be ready. No fevers or chills. No other symptoms. [facility] Medical History Abdominal pain Laceration of left great toe Open wound of buttock Dysuria Cataract Home Medications ?Medication ?Instructions ?Recorded ?Last Taken ?Type estradiol 10 mcg vaginal tablet 10 mcg VG QWEEK 10/15/14 05/27/16 History (Vagifem) simvastatin 5 mg tablet (Zocor) 5 mg PO QHS 10/15/14 05/27/16 History dicyclomine 10 mg capsule 20 mg (2 x 10 mg) PO TIDAC PRN 06/26/15 Unknown Rx Abdominal Pain #30 caps Lactobacillus acidoph-L.bulgaricus 1 ea PO TID 02/20/18 Unknown History 1 million cell tablet calcium citrate 200 mg (950 mg) 200 mg PO BID 02/20/18 Unknown History tablet cholecalciferol (vitamin D3) 50 2,000 unit PO DAILY 02/20/18 Unknown History mcg (2,000 unit) capsule (Vitamin D3) folic acid 0.8 mg capsule 0.8 mg PO DAILY 02/20/18 Unknown History ipratropium bromide 42 mcg (0.06 1 spray Q6H PRN PRN Cough 02/20/18 Unknown History %) nasal spray metronidazole 250 mg tablet 250 mg PO Q8H 02/20/18 Unknown History nitrofurantoin 100 mg PO BID 08/20/22 Unknown History monohydrate/macrocrystals 100 mg capsule (Macrobid) Allergy/AdvReac Type Severity Reaction Status Date / Time Penicillins (PCN) AdvReac Nausea Verified 03/01/24 22:24 prochlorperazine edisylate AdvReac Nausea Verified 03/01/24 22:24 (From Compazine) prochlorperazine maleate AdvReac Nausea Verified 03/01/24 22:24 (From Compazine) sulfamethoxazole (From AdvReac Nausea Verified 03/01/24 22:24 Bactrim) tetanus and diphtheria AdvReac Nausea Verified 03/01/24 22:24 toxoids trimethoprim (From Bactrim) AdvReac Nausea Verified 03/01/24 22:24 Family History Other Cancer Dementia Social History Smoking Status: Never smoker ROS ROS ED ROS Narrative Constitutional: No fever, no chills. HEENT: No sore throat. No neck pain. No loss of vision. No rhinorrhea. Cardiovascular: No chest pain. No palpitations. No pedal edema. Respiratory: No cough, no shortness of breath. Abdominal: No abdominal pain. 3 episodes of nausea and vomiting. Multiple episodes of loose, watery stool, the last being clear. Genitourinary: No dysuria. No hematuria. Musculoskeletal: No myalgias. No arthralgias. Neurologic: No headaches. No dizziness. Positive lightheadedness and shakiness. Skin: No rash. No change in color. Psychiatric: No depression. Mild anxiety. EXAM Physical Exam Narrative Exam Narrative: Afebrile. Vital signs noted. HEENT: Normocephalic. Atraumatic. PERRL, EOMI. Neck soft and supple. No point tenderness or step off. Cardiovascular: Regular rate and rhythm. No murmurs, rubs, or gallops appreciated. Respiratory: No tachypnea. Lungs clear to auscultation bilaterally. Gastrointestinal: Abdomen soft, nontender, with normoactive bowel sounds. No rebound or guarding. Neurological: Awake. Alert. Nonfocal, nonlateralizing. Mild shakiness and tremoring. Skin: No rash. Normal color. No pallor. Musculoskeletal: No pedal edema. Full range of motion extremities. Const Vital Signs: 03/01/24 22:21 03/02/24 00:21 03/02/24 01:24 Temperature 98.4 F 97.9 F Temperature Source Temporal Pulse Rate 92 77 77 Respiratory Rate 24 H 19 H 16 Blood Pressure 138/75 H 116/68 138/86 H Blood Pressure Mean 96 84 103 Pulse Ox 100 97 97 Oxygen Delivery Method Room Air MDM MDM MDM Narrative Medical decision making narrative: Differential diagnosis includes but not limited to pancreatitis versus intravascular volume depletion versus dehydration from bowel prep. No feel that she requires imaging currently. She was administered a bolus of IV fluids, and Zofran as well. I checked her laboratory work and she has normal white count of 10.0 and hemoglobin normal at 12.4 with platelet count normal at 305. I reviewed her CMP and she is mildly dehydrated with a sodium of 128, potassium low at 3.0, chloride 95, BUN is low at 4 with creatinine 0.67. I do feel her potassium is loss secondary to her bowel prep. I did offer to replace this orally, but she had continued nausea so she was given an additional dose of Zofran, and an additional 500 mL bolus of normal saline. She was able to tolerate 20 mill equivalents orally. Upon repeat examination at approximately 12:40 AM, she states she is feeling improved. She will follow-up for her colonoscopy tomorrow. Return instructions to the emergency department were reviewed. Disposition is discharged home in stable condition. History & Record Review Discussion w/independent historian: Patient Lab Data Attestation: I reviewed the patient's lab results. Labs: Laboratory Results - last 24 hr 03/01/24 22:30 WBC 10.0 RBC 4.21 Hgb 12.4 Hct 37.6 MCV 89.3 MCH 29.5 MCHC 33.0 RDW Std Deviation 39.9 RDW Coeff of [place] 12.3 Plt Count 305 MPV 10.5 Immature Gran % (Auto) 0.400 Neut % (Auto) 68.8 Lymph % (Auto) 21.4 [place] % (Auto) 8.1 Eos % (Auto) 0.7 Baso % (Auto) 0.6 Absolute Neuts (auto) 6.9 Absolute Lymphs (auto) 2.15 Nucleated RBC % 0 Sodium 128 L Potassium 3.0 L Chloride 95 L Carbon Dioxide 23.0 Anion Gap 10 BUN 4 L Creatinine 0.67 Estim Creat Clear Calc 57.20 Est GFR (MDRD) Af Amer 111 Est GFR (MDRD) Non-Af 92 BUN/Creatinine Ratio 6.0 L Glucose 116 H Calcium 8.8 Total Bilirubin 0.60 AST 20 ALT 21 Alkaline Phosphatase 79 Total Protein 7.9 Albumin 3.9 Globulin 4.0 Albumin/Globulin Ratio 1.0 Lipase 41 Discharge Plan Triage Chief Complaint: Nausea/Vomiting ED Provider: Berlin Gallegos Dx/Rx/DC Orders Clinical Impression: Nausea and vomiting, Dehydration, Hypokalemia Instructions: ED Dehydration (Adult), ED Hypokalemia, ED Vomiting (Adult) Prescriptions: No Action nitrofurantoin monohyd/m-cryst [Macrobid] 100 mg capsule 100 mg PO BID Rx Instructions: must administer with a meal/food simvastatin [Zocor] 5 MG tablet 5 mg PO QHS estradiol [Vagifem] 10 MCG tablet 10 mcg VG QWEEK Patient Comments: TWICE A WEEK dicyclomine 10 MG capsule 20 mg PO TIDAC PRN (Reason: Abdominal Pain) Qty: 30 0RF metronidazole 250 MG tablet 250 mg PO Q8H calcium citrate 200 MG tablet 200 mg PO BID folic acid 0.8 MG capsule 0.8 mg PO DAILY cholecalciferol (vitamin D3) [Vitamin D3] 2,000 UNIT capsule 2,000 unit PO DAILY ipratropium bromide 1 SPRAY spray,non-aerosol 1 spray NASAL Q6H PRN PRN (Reason: Cough) Lactobacillus acidoph-L.bulgar 1 EACH tablet 1 ea PO TID Primary Care Provider: Aaron Segura Referrals: Aaron Segura MD [Primary Care Provider] - 1-2 Days if not improving Print Language: Ukrainian Disposition Disposition: Home, Self Care Discharge Date/Time: 03/02/24 01:34
[2024-03-01] MEDS: Ondansetron 4 MG/2 ML Vial IV (23:29)
[2024-03-01 23:39] LABS: AST(SGOT) 20 U/L (15-37); Alanine Aminotransfer ALT/SGPT 21 U/L (13-56); Albumin, Serum 3.9 g/dL (3.2-5.0); Alkaline Phosphatase 79 U/L (45-117); Anion Gap 10 (5-15); BUN 4 mg/dL (7-18); Calcium,Total 8.8 mg/dL (8.5-10.1); Chloride 95 mmol/L (98-107); Creatinine, Serum 0.67 mg/dL (0.55-1.02); EST Glomerular Filtration Rate 92 mL/min (>60); Est Glom Filt Rate - Afr Amer 111 mL/min (>60); Glucose 116 mg/dL (74-106); Lipase 41 U/L (13-75); Protein, Total 7.9 g/dL (6.4-8.2); Sodium Level 128 mmol/L (136-145)
[2024-03-02 00:21] VITALS: BP 116/68; PULSE 77; RESP 19; O2SAT 97
[2024-03-02] MEDS: 0.9% Normal Saline (500mL Bag) 500 ML 999 ML IV (01:04)
[2024-03-02] MEDS: Ondansetron 4 MG/2 ML Vial IV (01:04)
[2024-03-02] MEDS: Potassium Chloride Oral Tablet 20 MEQ PO (01:04)
[2024-03-02 01:24] VITALS: BP 138/86; PULSE 77; RESP 16; TEMP 36.6; O2SAT 97
== END 2024-03-02 01:34 | disposition home or self-care (01) ==
PROVIDERS: Emergency Provider Emergency Medicine; PCP Family Medicine; Visit Provider Emergency Medicine
DX: R11.2 Nausea with vomiting, unspecified (principal); E87.6 Hypokalemia; E86.0 Dehydration; R19.7 Diarrhea, unspecified
CPT/HCPCS: 80053; 83690; 85025; 96361; 96374; 99284; J7040; A4216; J2405

== ENCOUNTER → 2024-08-14 | Outpatient (CLI) | payer MEDICARE, OTHER, SELFPAY | END | disposition home or self-care (01) | LOC: LABSPEC 11:01 | PROVIDERS: PCP Family Medicine; Visit Provider Physician Assistant | DX: R82.90 Unspecified abnormal findings in urine (principal) | CPT/HCPCS: 87086; 87088 ==

== ENCOUNTER → 2024-08-14 | Outpatient (CLI) | payer MEDICARE, OTHER, SELFPAY ==
--- NOTE | 2024-08-14 09:25 | BI_ITS ---
PROCEDURE: SCRN MAMM (CAD)W/MASOOD BILAT REASON FOR EXAM: F, Age 74 y/o, no family history. Prior left breast aspiration. TECHNIQUE: Bilateral screening digital breast tomosynthesis with 2D and 3D images. Computer aided detection. COMPARISON: Prior exam(s) dating back to comparison is made with prior study dated August 04, 2023.. FINDINGS: The breasts are heterogeneously dense which may obscure small masses. No suspicious masses, areas of developing architectural distortion, or suspicious calcifications. Stable examination. BI/SCRN MAMM (CAD)W/MASOOD BILAT IMPRESSION: BI-RADS 1: NEGATIVE. RECOMMEND ANNUAL MAMMOGRAPHIC SCREENING. Follow-up code: Routine Follow-up The patient will be notified of the results by letter. Reading Location: [place] [address]
== END | disposition home or self-care (01) ==
LOC: OPBI 09:24
PROVIDERS: PCP Family Medicine; Referring Provider Family Medicine; Visit Provider Family Medicine
DX: Z12.31 Encounter for screening mammogram for malignant neoplasm of breast (principal)
CPT/HCPCS: 77063; 77067